=== PATIENT | male | born 1965 | race Caucasian/White ===

== ENCOUNTER 2021-09-05 06:22 | Outpatient (REF) | payer BC, SELFPAY ==
[2021-09-05 11:35] LABS: MANUAL DIFF FLAG NO
[2021-09-05 11:43] LABS: Basophils Absolute Auto 0.1 X10*3/uL (0.0-0.2); Basophils Percent Auto 0.8 % (0-2); Eosinophils Absolute Auto 0.2 X10*3/uL (0.0-0.4); Eosinophils Percent Auto 3.2 % (0-4); Hematocrit 46.4 % (42.0-52.0); Hemoglobin 15.9 g/dl (14.0-18.0); Imm Gran Abs Auto 0.04 X10*3/uL (0.00-0.03); Imm Gran Pct Auto 0.5 % (0.0-0.4); Lymphocytes Absolute Auto 1.6 X10*3/uL (1.2-4.9); Lymphocytes Percent Auto 21.3 % (20-40); Mean Corpuscular HGB Conc 34.3 g/dl (31.0-36.0); Mean Corpuscular Hemoglobin 30.3 pg (27.0-33.0); Mean Corpuscular Volume 88.5 fL (80.0-98.0); Mean Platelet Volume 9.9 fL (9.4-12.4); Monocytes Absolute Auto 0.6 X10*3/uL (0.1-1.2); Monocytes Percent Auto 8.2 % (2-11); Platelet Count 265 X10*3/uL (160-400); Red Blood Count 5.24 X10*6/uL (4.60-5.80); Red Cell Distribution Width 11.6 % (11.0-16.0); White Blood Count 7.5 X10*3/uL (4.8-10.8)
[2021-09-05 12:01] LABS: Estimated Average Glucose 111 mg/dL; Hemoglobin A1c % 5.5 %
[2021-09-05 12:09] LABS: Alanine Aminotransferase 26 U/L (0-40); Albumin Level 4.6 g/dL (3.5-5.0); Alkaline Phosphatase 80 U/L (39-117); Anion Gap 12 (12-20); Aspartate Amino Transferase 16 U/L (5-37); Bilirubin Total 0.9 mg/dL (0.0-1.0); Blood Urea Nitrogen 13 mg/dL (9-16); Calcium 9.4 mg/dL (8.4-10.2); Carbon Dioxide 29 mmol/L (22-29); Chloride 102 mmol/L (96-108); Cholesterol 213 mg/dL; Estimated Glomerular Filt Rate > 60; Glucose Random 127 mg/dL (60-115); HDL Cholesterol 46 mg/dL; LDL Cholesterol Calculated 118 mg/dl; Potassium 4.4 mmol/L (3.3-5.1); Sodium 139 mmol/L (135-145); Total Protein 7.1 g/dL (6.5-8.0); Triglycerides 246 mg/dL
[2021-09-05 12:11] LABS: Free T4 (Free Thyroxine) 0.99 ng/dL (0.71-1.85); Prostate Specific Antigen Scr 0.55 ng/mL (<0.05-4.0)
[2021-09-05 12:41] LABS: Vitamin B12 255 pg/mL (200-900)
== END 2021-09-05 06:23 | disposition home or self-care (01) ==
LOC: HO.HMGCLDS 06:22
PROVIDERS: Visit Provider Internal Medicine
DX: Z12.5 Encounter for screening for malignant neoplasm of prostate (principal); R73.01 Impaired fasting glucose; I10 Essential (primary) hypertension; E78.00 Pure hypercholesterolemia, unspecified
CPT/HCPCS: 36415; 80053; 80061; 82607; 82746; 83036; 84153; 84439; 84443; 85025

== ENCOUNTER 2022-06-01 07:02 | Outpatient (REF) | payer BC, SELFPAY ==
--- NOTE | ~2022-06-01 | XR_ITS ---
EXAMINATION: Bilateral knee x-ray CLINICAL INFORMATION: Pain COMPARISON: None. TECHNIQUE: 2 views of each knee FINDINGS: Left: Bone alignment is normal. No fracture or dislocation. Normal disc spaces. No joint effusion. Right: Bone alignment is normal. No fracture or disc. Normal joint spaces. No joint effusion. XR/XR knee LT 2V IMPRESSION: Unremarkable exam.
--- NOTE | ~2022-06-01 | XR_ITS ---
EXAMINATION: Bilateral knee x-ray CLINICAL INFORMATION: Pain COMPARISON: None. TECHNIQUE: 2 views of each knee FINDINGS: Left: Bone alignment is normal. No fracture or dislocation. Normal disc spaces. No joint effusion. Right: Bone alignment is normal. No fracture or disc. Normal joint spaces. No joint effusion. XR/XR knee RT 2V IMPRESSION: Unremarkable exam.
[2022-06-01 12:22] LABS: Estimated Average Glucose 111 mg/dL; Hemoglobin A1c % 5.5 %
[2022-06-01 12:36] LABS: Alanine Aminotransferase 18 U/L (0-40); Albumin Level 4.6 g/dL (3.5-5.0); Alkaline Phosphatase 92 U/L (39-117); Anion Gap 13 (12-20); Aspartate Amino Transferase 13 U/L (5-37); Blood Urea Nitrogen 17 mg/dL (9-16); Calcium 9.7 mg/dL (8.4-10.2); Carbon Dioxide 32 mmol/L (22-29); Chloride 102 mmol/L (96-108); Cholesterol 225 mg/dL; Estimated Glomerular Filt Rate > 60; Glucose Random 114 mg/dL (60-115); HDL Cholesterol 48 mg/dL; LDL Cholesterol Calculated 126 mg/dl; Potassium 4.8 mmol/L (3.3-5.1); Sodium 142 mmol/L (135-145); Total Protein 6.9 g/dL (6.5-8.0); Triglycerides 255 mg/dL
[2022-06-05 09:08] LABS: Lyme Abs Screen <0.90 index
== END 2022-06-01 07:03 | disposition home or self-care (01) ==
LOC: HO.HMGCLDS 07:02
PROVIDERS: PCP Internal Medicine; Visit Provider Internal Medicine
DX: T14.8XXA Other injury of unspecified body region, initial encounter (principal); W57.XXXA Bitten or stung by nonvenomous insect and other nonvenomous arthropods, initial encounter; M25.562 Pain in left knee; M25.561 Pain in right knee; R73.01 Impaired fasting glucose; E78.00 Pure hypercholesterolemia, unspecified
CPT/HCPCS: 36415; 73560; 80053; 80061; 83036; 86617; 86618

== ENCOUNTER 2022-10-19 10:32 | Day surgery (SDC) | payer BC, SELFPAY ==
--- NOTE | 2022-10-18 12:24 | HO.ANESPROP2 ---
Documented by User: Emerald Villatoro NP 10/18/22 12:25 HPI - Anesthesia Eval Consult details Narrative: 57yo M for Colonoscopy PMFSH Active Problems Active Problems: All Active Problems (Updated 04/24/22 @ 12:38 by Manolo Phillips MD) Tick bite (Acute) Knee pain, bilateral (Acute) Disorder of pigmentation, unspecified (Acute) Colon cancer (Acute) Annual physical exam (Acute) Knee pain (Acute) Impaired fasting blood sugar (Acute) Overweight (BMI 25.0-29.9) (Acute) Hypertension (Acute) Hypercholesterolemia (Acute) Past Medical History Medical History Alcohol abuse Colon cancer Overweight (BMI 25.0-29.9) Hypertension Hypercholesterolemia Family History Family History Father Mouth cancer Lung cancer Mother CAD (coronary artery disease) Aneurysm Maternal Uncle Brain cancer Brother CAD (coronary artery disease) Surgical History Surgical History (Updated 10/19/22 @ 12:31 by Shruti Flores MD) H/O colonoscopy History of inguinal hernia repair History of tonsillectomy Social History Social History Housing: House Alcohol intake: current Alcohol intake frequency: a few times a week Patient Tobacco Use Status: Never used Tobacco e-Cigarette/Vaping Use: Never Used Second Hand Smoke Exposure: No Use of substances other than those prescribed or required for medical reasons: No Are you DNR?: No Advance Directives: No Advance Directives Information Provided: Yes Recently lost weight without trying: No Nutrition Risks: No Nutritional Risk Poor oral hygiene: No service: No Current occupational status: employed 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 Cognitive needs: No Hearing needs: No Vision needs: Yes (reading glasses) Meds Allergies Allergy/AdvReac Type Severity Reaction Status Date / Time amlodipine Allergy Unknown leg Verified 06/12/21 16:53 swelling lisinopril Allergy Unknown not Verified 06/12/21 16:53 effective Home Medications Medication Instructions Recorded Confirmed Last Taken Type cholecalciferol (vitamin D3) 25 25 mcg PO DAILY 06/12/21 06/12/21 Unknown History mcg (1,000 unit) capsule Exam Exam Date and Time: October 18, 2022 1224 Pertinent Lab Results Pertinent Lab Results: Laboratory Tests 06/01/22 07:07 Sodium 142 Potassium 4.8 Chloride 102 Carbon Dioxide 32 H BUN 17 H Creatinine 0.85 Assessment and Plan Assessment Anesthesia Assessment: Chart Reviewed Documented by User: Shruti Flores MD 10/19/22 12:54 PMFSH Active Problems Active Problems: All Active Problems (Updated 10/19/22 @ 12:18 by Shruti Flores MD) Tick bite (Acute) Knee pain, bilateral (Acute) Disorder of pigmentation, unspecified (Acute) Colon cancer (Acute) Annual physical exam (Acute) Knee pain (Acute) Impaired fasting blood sugar (Acute) Overweight (BMI 25.0-29.9) (Acute) Hypertension (Acute) Hypercholesterolemia (Acute) ETOH abuse Past Medical History Medical History Alcohol abuse Colon cancer Overweight (BMI 25.0-29.9) Hypertension Hypercholesterolemia Family History Family History Father Mouth cancer Lung cancer Mother CAD (coronary artery disease) Aneurysm Maternal Uncle Brain cancer Brother CAD (coronary artery disease) Family history of problems with anesthesia: No Surgical History Surgical History (Updated 10/19/22 @ 12:31 by Shruti Flores MD) H/O colonoscopy History of inguinal hernia repair History of tonsillectomy History of Problems with Anesthesia: No Social History Social History Housing: House Alcohol intake: current Alcohol intake frequency: a few times a week Patient Tobacco Use Status: Never used Tobacco e-Cigarette/Vaping Use: Never Used Second Hand Smoke Exposure: No Use of substances other than those prescribed or required for medical reasons: No Are you DNR?: No Advance Directives: No Advance Directives Information Provided: Yes Recently lost weight without trying: No Nutrition Risks: No Nutritional Risk Poor oral hygiene: No service: No Current occupational status: employed 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 Cognitive needs: No Hearing needs: No Vision needs: Yes (reading glasses) Meds Allergies Allergy/AdvReac Type Severity Reaction Status Date / Time amlodipine Allergy Unknown leg Verified 06/12/21 16:53 swelling lisinopril Allergy Unknown not Verified 06/12/21 16:53 effective Home Medications Medication Instructions Recorded Confirmed Last Taken Type cholecalciferol (vitamin D3) 25 25 mcg PO DAILY 06/12/21 06/12/21 Unknown History mcg (1,000 unit) capsule Exam Height,Weight and Vital Signs: Height 5 ft 11 in Weight 83.915 kg Vital Signs Temp Pulse Resp BP Pulse Ox O2 Del Method 10/19/22 12:32 157/96 H 10/19/22 12:08 97.4 F 75 18 170/103 H 97 Room Air Airway Mallampati Class: II TM Dist: >3cm Neck ROM: Full Loose/Missing/Broken Teeth: No (Denies broken, loose, missing teeth ) Heart: RRR Lungs: CTAB Assessment and Plan Assessment Anesthesia Assessment: Anesthesia Plan Discussed Final Anesthetic Review Family History of Problems with Anesthesia: No History of Problems with Anesthesia: No NPO: Yes ASA Class: III Final Preanesthetic Review: No Changes in Pt Med Stat, Meds/Allgs Chart Reviewed, Consent Obtained/Reviewed and Anes Risks/Benef Reviewed Patient Risk: Intermediate Procedure Risk: Low Assessment/Block/Sedation in SS: Assess/Block/Sedation-SS Anesthetic Plan Anesthetic Plan: MAC: Disposition: Standard PACU
[2022-10-19 12:08] VITALS: BP 170/103; PULSE 75; RESP 18; TEMP 36.3; O2SAT 97; BMI 25.8
[2022-10-19 12:32] VITALS: BP 157/96
[2022-10-19] MEDS: Lactated Ringers 1,000 ML 100 ML IVCONT (12:32)
--- NOTE | 2022-10-19 12:57 | MHC.SHP ---
Pre-Procedural Eval Section A Date of Service: 10/19/22 Section B Chief Complaint: Screening Details of Present Illness: see H*P no changes Relevant Family History (Specify if Yes): No Relevant Social History: None Present Medications: see Short Stay Collaborative assessment Medical History: No relevant PMH History of Previous Operations: No relevant previous surgery Allergies: Allergies Allergy/AdvReac Type Severity Reaction Status Date / Time amlodipine Allergy Unknown leg Verified 06/12/21 16:53 swelling lisinopril Allergy Unknown not Verified 06/12/21 16:53 effective Review of Systems Sugical H&P ROS: Negative: Constitution, Cardiovascular, Respiratory, Neurological, Psychiatric, Hem-Onc, Allergic/Immunologic, Gastrointestinal, Genitourinary, Musculoskeletal, Integumentary, Endocrine and Eyes/Ears/Nose/Throat Exam Surgical H&P Exam: Normal: HEENT, Normal: Heart, Normal: Lungs, Normal: Extremities, Normal: Abdomen, Normal: Skin and Normal: Neurological Plan Diagnosis/Plan: Unchanged I have reviewed the history and physical and performed a pertinent physical examination on my patient. No changes have occurred unless specified. Time Spent With Patient Time: Total time managing care of this patient today ____ minutes.
--- NOTE | 2022-10-19 13:30 | P.BOP_ITS ---
Brief Operative Note Date of Service: 10/19/22 Pre-op diagnosis: screening Post-op diagnosis: same Procedure: colonoscopy Surgeon: Israel Gaxiola Anesthesia: MAC Was an Shingle Cutter used for this Procedure?: No Estimated blood loss (mL): 0 Pathology: none sent Condition: stable Disposition: PACU
[2022-10-19 13:31] VITALS: BP 120/60; PULSE 73; RESP 16; TEMP 36.1; O2SAT 95
[2022-10-19 13:46] VITALS: BP 131/75; PULSE 71; RESP 14; O2SAT 96
[2022-10-19 14:01] VITALS: BP 136/77; PULSE 66; RESP 16; TEMP 36.6; O2SAT 98
--- NOTE | 2022-10-19 23:17 | OP_ITS ---
DATE OF SERVICE: 10/19/2022 SURGEON: Israel Gaxiola MD INDICATIONS: Colon cancer screening and prior history of adenomatous colon polyps. PREOPERATIVE DIAGNOSIS: POSTOPERATIVE DIAGNOSIS: PROCEDURE PERFORMED: Colonoscopy to the terminal ileum. ESTIMATED BLOOD LOSS: COMPLICATIONS: ANESTHESIA: Monitored anesthesia care. ASSISTANTS: SPECIMENS: DESCRIPTION OF PROCEDURE: A history and physical were performed. The risks and benefits of the procedure were explained to the patient. Informed consent was obtained. The patient was placed in the left lateral decubitus position. A digital rectal exam was performed and was found to be normal. The Olympus pediatric video colonoscope was introduced into the rectum and advanced to the cecum. The cecum was identified by transillumination, palpation, and identification of the ileocecal valve. Examination was performed, and the scope was removed. He tolerated the procedure well and was taken to recovery area in stable condition. FINDINGS: The terminal ileum was examined and appeared normal. The visualized colonic mucosa was normal. The quality of the prep was good. No polyps were identified. 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 IMPRESSION: Normal colonoscopy. RECOMMENDATION: 1. Follow up as needed. 2. Repeat colonoscopy in 5 years. MD HAMMAD Nino/EKTA / [id number]
== END 2022-10-19 14:25 | disposition home or self-care (01) ==
PROVIDERS: PCP Internal Medicine; Visit Provider Internal Medicine Gastroenterology
PROC: 0DJD8ZZ Inspection of Lower Intestinal Tract, Via Natural or Artificial Opening Endoscopic (ICD-10-PCS; CPT 45378; principal; 2022-10-19 12:00)
DX: Z12.11 Encounter for screening for malignant neoplasm of colon (principal); Z86.010 Personal history of colon polyps; I10 Essential (primary) hypertension; E78.5 Hyperlipidemia, unspecified; Z79.899 Other long term (current) drug therapy
CPT/HCPCS: 45378

== ENCOUNTER 2023-01-21 12:09 | Outpatient (AMB) | payer BC, SELFPAY ==
[2023-01-21 12:29] VITALS: BP 178/96; PULSE 71; O2SAT 96; BMI 26.6
--- NOTE | 2023-01-21 12:29 | MHC.PC.OV ---
Vital Signs 01/21/23 12:29 Height 5 ft 11 in Weight 191 lb 0.4 oz BMI 26.6 BP 178/96 H Blood Pressure Location Lt brachial Position Sitting Pulse 71 Pulse Source Pulse Oximeter Pulse Oximetry (%) 96 Oxygen Delivery Method Room Air Intake Visit Reasons: Physical Exam Motorcycle Service Technician Required: No Allergies amlodipine Allergy (Unknown, Verified 01/21/23 12:33) leg swelling Medication List - Last Reconciled 01/21/23 by Manolo Phillips MD betamethasone dipropionate 0.05% 1 appl topical BID PRN cholecalciferol (vitamin D3) 25 mcg PO DAILY lisinopril-hydrochlorothiazide 10-12.5 mg 1 tab PO DAILY simvastatin 10 mg PO QPM Tobacco use date assessed: 01/21/23 HPI Physical Exam HPI Details 57-year-old overweight male with a history of impaired glucose tolerance hypertension hypercholesterolemia coming in for an physical exam. Last seen for physical exam in June 2021. Review of the notes patient had a colonoscopy done under Dr. Gaxiola October 2022 normal colonoscopy advised to repeat in 5 years. Had an x-ray done in June 2022 both normal [facility] Medical History (Updated 01/21/23 @ 12:49 by Manolo Phillips MD) Knee pain, bilateral Alcohol abuse Colon cancer Overweight (BMI 25.0-29.9) Hypertension Hypercholesterolemia Surgical History (Updated 10/19/22 @ 12:31 by Shruti Flores MD) H/O colonoscopy History of inguinal hernia repair History of tonsillectomy Family History (Updated 01/21/23 @ 12:44 by Manolo Phillips MD) Father Mouth cancer Lung cancer Mother CAD (coronary artery disease) Aneurysm Maternal Uncle Brain cancer Brother CAD (coronary artery disease) Maternal Uncle Brain cancer Social History (Updated 01/21/23 @ 12:44 by Manolo Phillips MD) Housing: House Alcohol intake: current Alcohol intake frequency: a few times a week Comment: twice a week 4 drinks and 6 drinks Patient Tobacco Use Status: Never used Tobacco e-Cigarette/Vaping Use: Never Used Second Hand Smoke Exposure: No service: No Current occupational status: employed 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 1. Little interest or pleasure in doing things: not at all 2. Feeling down, depressed, or hopeless: not at all 3. Trouble falling or staying asleep, or sleeping too much: not at all 4. Feeling tired or having little energy: not at all 5. Poor appetite or overeating: not at all 6. Feeling bad about yourself - or that you are a failure or have let yourself or your family down: not at all 7. Trouble concentrating on things, such as reading the newspaper or watching television: not at all 8. Moving or speaking so slowly that other people could have noticed. Or the opposite - being so fidgety or restless that you have been moving around a lot more than usual: not at all 9. Thoughts that you would be better off or of hurting yourself in some way: not at all Total score: 0 Depression Screening Interpretation: Negative Depression Screening Done: Yes Source: Developed by Drs. Aiden Ramos, Michael Bermudez and colleagues, with an educational liane from [employer]. Thrive Questionnaire Date Thrive assessed: 06/12/21 AUDIT C Alcohol Use Questionnaire (AUDIT-C) 1. How often do you have a drink containing alcohol?: 2-3 times a week 2. How many drinks containing alcohol do you have on a typical day when you are drinking?: 1 or 2 3. How often do you have six or more drinks on one occasion?: Never Total Score: 3 LEE-7 AMB Questionnaire LEE-7 Date LEE - 7 assessed: 01/21/23 Feeling nervous, anxious, or on edge: 0 = Not at all Not being able to stop or control worryin = Not at all Worrying too much about different things: 0 = Not at all Trouble relaxin = Not at all Being so restless that it is hard to sit still: 0 = Not at all Becoming easily annoyed or irritable: 0 = Not at all Feeling afraid as if something awful might happen: 0 = Not at all Total LEE-7 score (0-4 normal; 5-9 mild; 10-14 moderate; 15-21 severe): 0 Source: Developed by Drs. Aiden Ramos, Michael Bermudez and colleagues, with an educational liane from [employer]. Review of Systems Const Denies poor appetite and Denies weakness Eyes Denies no additional complaints ENT Reports Normal hearing present, Denies dizziness, Denies nasal congestion, Denies tinnitus and Denies sore throat Card Denies chest pain, Denies syncope, Denies rapid heart rate and Denies dyspnea Resp Denies cough and Denies dyspnea GI Denies change in stool character, Reports constipation, Denies diarrhea, Denies nausea and Denies vomiting Denies dysuria and Denies urinary frequency Neuro Reports Normal hearing present, Denies confusion, Denies dizziness, Denies syncope and Denies weakness Psych Denies confusion Physical exam (Primary Care) Vital Signs: Last Vital Signs Pulse 71 01/21/23 12:29 BP 178/96 H 01/21/23 12:29 Pulse Ox 96 01/21/23 12:29 Oxygen Delivery Method Room Air 01/21/23 12:29 BMI result Body Mass Index 26.6 Tobacco/Smoking Status: Tobacco use Status Tobacco use date assessed 01/21/23 01/21/23 12:36 Patient Tobacco Use Status Never used Tobacco 01/21/23 12:44 e-Cigarette/Vaping Use Never Used 01/21/23 12:44 PHQ-9: PHQ-9 Score PHQ-9: Total score 0 01/21/23 12:36 Depression Screening Interpretation: Negative Thrive Assessment: Date of Thrive Assessment Date Thrive assessed 06/12/21 01/21/23 12:36 Const General: No confusion Orientation/consciousness: No confusion HENMT Head: Yes normocephalic Ears: external ears normal and TM's normal bilaterally Face and sinus: Yes normal facial exam Mouth: moist mucous membranes Throat: Yes tonsils normal Eyes Conjunctivae: conjunctivae normal Pupils: Equal, round and reactive pupils present and Pupil accommodation reflex normal Direct Ophthalmoscopy: normal light reflex Neck Neck: No lymphadenopathy Thyroid: Thyroid normal Chest Chest palpation & inspection: normal inspection of the chest Resp Effort & Inspection: normal respiratory effort and no audible wheezes Auscultation: clear to auscultation bilaterally, no crackles, no wheezes and lung sounds not diminished Cardio Rate: regular rate Rhythm: regular rhythm Peripheral pulses: radial pulses present and dorsalis pedis present GI Other: colon test recently Palpation (GI): no masses Auscultation: normal bowel sounds and normoactive bowel sounds Rectal Exam - Male: Yes deferred Male General Exam: Yes normal external exam Skin Other: multiple scaly rashes elbow RLQ abd. with swelling L elbow , General skin exam: no rashes or lesions noted Rashes: no rashes Neuro General: No confusion Cranial nerves: Yes Equal, round and reactive pupils present and Yes Normal hearing present Cognition (Neuro): normal cognition Gait exam (Neuro): Normal gait present Motor exam (neuro): 5/5 motor strength present throughout Deep tendon reflexes (DTR's): Right brachioradialis reflex intensity grade: 2+, Left brachioradialis reflex intensity grade: 2+, Right patellar reflex intensity grade: 2+ and Left patellar reflex intensity grade: 2+ Extrem General: No edema Office Procedures Flu Questionnaire Does the patient have a severe egg allergy?: No Does the patient have severe life threatening allergies?: No Does the patient have a fever or illness today?: No Has the patient ever had Guillain-Labadie Syndrome?: No Has the patient ever had any past reaction to a flu shot?: No Immunizations flu vacc [id number] 6mos up(PF) 60 mcg(15 mcgx4)/0.5 mL IM syringe Performing Provider: Manolo Phillips MD [facility] Administered by: CATALINA Luz on 01/21/23 13:05 Dose Route Admin Location Dispensed Lot Number Expiration Date NDC Web Marketing Intern 0.5 mL IM Left Deltoid 0.5 mL [id number] 08/11/23 46743-016-33 [employer] VIS Given Date VIS Provided VIS Publication Date 01/21/23 Single Vaccine 20 Eligibility Eligibility Date Funding Source Not [facility] Eligible 01/21/23 Private Assessment and Plan Assessment & Plan (1) Annual physical exam: Code(s): Z00.00 - Encounter for general adult medical examination without abnormal findings (2) Hypertension: Code(s): I10 - Essential (primary) hypertension Qualifiers: Hypertension type: essential hypertension Qualified Code(s): I10 - Essential (primary) hypertension Plan: Continue with blood pressure medication. Decrease salt intake and exercise patient is on hydrochlorothiazide 12.5 mg once a day (3) Hypercholesterolemia: Code(s): E78.00 - Pure hypercholesterolemia, unspecified Plan: Avoid fried foods, chicken skin, eggs, butter margarine, pastries and meat. Be it pork or beef they have a lot of cholesterol LDL goal of less than 130 and triglyceride of less than 150. Patient on simvastatin 10 mg once a day blood work requested (4) Impaired fasting blood sugar: Code(s): R73.01 - Impaired fasting glucose Plan: Decrease the amount of carbohydrate intake, pasta, bread, rice and potatoes are all sugar and that is aside from all the sweet stuff, remember that fruits are good but they are Sweet also. (5) Colon cancer: Comment: May 2016 Dr. Gaxiola added a carcinoma May 2017 tubular adenoma October 2022 Code(s): C18.9 - Malignant neoplasm of colon, unspecified Plan: Normal colonoscopy October 2019 (6) Olecranon bursitis, left elbow: Code(s): M70.22 - Olecranon bursitis, left elbow (7) Psoriasis: Code(s): L40.9 - Psoriasis, unspecified Orders: Orders Comprehensive Met. Panel Today E78.00 - Pure hypercholesterolemia, unspecified Free T4 (Free Thyroxine) Today E78.00 - Pure hypercholesterolemia, unspecified Vitamin B12 and Folate Today E78.00 - Pure hypercholesterolemia, unspecified Complete Blood Count Auto Diff Today E78.00 - Pure hypercholesterolemia, unspecified Thyroid Stimulating Hormone Today E78.00 - Pure hypercholesterolemia, unspecified Lipid Panel Today E78.00 - Pure hypercholesterolemia, unspecified Prostate Specific Antigen Scr Today E78.00 - Pure hypercholesterolemia, unspecified Influenza [id number] Immunization Today Z23 - Encounter for immunization Medications: New lisinopril-hydrochlorothiazide 10-12.5 mg 1 tab PO DAILY 30 tabs 4RF I10 - Essential (primary) hypertension betamethasone dipropionate 0.05% 1 appl topical BID PRN 45 grams 0RF skin irritation L40.9 - Psoriasis, unspecified Discontinued hydrochlorothiazide Discontinued Reason: Doctor's Order 12.5 mg PO QAM 90 tabs 3RF I10 - Essential (primary) hypertension Coding Level of Care Code Est Pt Prev Care [id number]([id number]) Diagnoses Annual physical exam Z00.00 Essential hypertension I10 Hypertension type: essential hypertension Hypercholesterolemia E78.00 Impaired fasting blood sugar R73.01 Colon cancer C18.9 Olecranon bursitis, left elbow M70.22 Psoriasis L40.9
== END 2023-01-21 13:10 | disposition home or self-care (01) ==
PROVIDERS: Visit Provider Internal Medicine
DX: Z00.00 Encounter for general adult medical examination without abnormal findings (principal); C18.9 Malignant neoplasm of colon, unspecified; I10 Essential (primary) hypertension; Z23 Encounter for immunization; E78.00 Pure hypercholesterolemia, unspecified; R73.01 Impaired fasting glucose; M70.22 Olecranon bursitis, left elbow; L40.9 Psoriasis, unspecified
CPT/HCPCS: 90471; 90686; 99396

== ENCOUNTER 2023-03-07 06:55 | Outpatient (REF) | payer BC, SELFPAY ==
[2023-03-07 11:46] LABS: MANUAL DIFF FLAG NO
[2023-03-07 12:11] LABS: Basophils Absolute Auto 0.1 X10*3/uL (0.0-0.2); Basophils Percent Auto 0.9 % (0-2); Eosinophils Absolute Auto 0.1 X10*3/uL (0.0-0.4); Eosinophils Percent Auto 1.1 % (0-4); Imm Gran Abs Auto 0.03 X10*3/uL (0.00-0.03); Imm Gran Pct Auto 0.3 % (0.0-0.4); Lymphocytes Absolute Auto 1.6 X10*3/uL (1.2-4.9); Lymphocytes Percent Auto 17.5 % (20-40); Mean Corpuscular Hemoglobin 30.1 pg (27.0-33.0); Mean Corpuscular Volume 88.3 fL (80.0-98.0); Mean Platelet Volume 9.8 fL (9.4-12.4); Monocytes Absolute Auto 0.7 X10*3/uL (0.1-1.2); Neutrophils Absolute Auto 6.8 x10*3/uL (2.0-8.3); Neutrophils Percent Auto 73.2 % (45-73); Platelet Count 261 X10*3/uL (160-400); Red Blood Count 5.32 X10*6/uL (4.60-5.80); Red Cell Distribution Width 11.4 % (11.0-16.0); White Blood Count 9.3 X10*3/uL (4.8-10.8)
[2023-03-07 12:16] LABS: Alanine Aminotransferase 22 U/L (0-40); Albumin Level 4.5 g/dL (3.5-5.0); Alkaline Phosphatase 88 U/L (39-117); Anion Gap 11 (12-20); Aspartate Amino Transferase 14 U/L (5-37); Bilirubin Total 0.6 mg/dL (0.0-1.0); Blood Urea Nitrogen 17 mg/dL (9-16); Calcium 9.6 mg/dL (8.4-10.2); Carbon Dioxide 28 mmol/L (22-29); Chloride 104 mmol/L (96-108); Cholesterol 191 mg/dL (<200); Estimated Glomerular Filt Rate > 60; Glucose Random 122 mg/dL (60-115); HDL Cholesterol 37 mg/dL (>40); LDL Cholesterol Calculated 119 mg/dL (<100); Potassium 4.4 mmol/L (3.3-5.1); Sodium 139 mmol/L (135-145); Total Protein 7.2 g/dL (6.5-8.0); Triglycerides 177 mg/dL (<150)
[2023-03-07 12:35] LABS: Free T4 (Free Thyroxine) 0.94 ng/dL (0.71-1.85); Thyroid Stimulating Hormone 0.55 uIU/mL (0.32-4.0)
[2023-03-07 12:57] LABS: Folate 4.8 ng/mL (> or = 4.0); Prostate Specific Antigen Scr 0.45 ng/mL (<0.05-4.0); Vitamin B12 385 pg/mL (200-900)
== END 2023-03-07 06:56 | disposition home or self-care (01) ==
LOC: HO.HMGCLDS 06:55
PROVIDERS: PCP Internal Medicine; Visit Provider Internal Medicine
DX: Z12.5 Encounter for screening for malignant neoplasm of prostate (principal); E78.00 Pure hypercholesterolemia, unspecified
CPT/HCPCS: 36415; 80053; 80061; 82607; 82746; 84153; 84439; 84443; 85025

== ENCOUNTER 2023-04-01 12:54 | Outpatient (AMB) | payer BC, SELFPAY ==
--- NOTE | 2023-04-01 12:57 | MHC.PC.OV ---
Vital Signs 04/01/23 12:59 Height 5 ft 11 in Weight 189 lb BMI 26.4 BP 120/64 Blood Pressure Location Lt brachial Position Sitting Pulse 77 Pulse Source Pulse Oximeter Pulse Oximetry (%) 96 Oxygen Delivery Method Room Air Intake Visit Reasons: htn Intake Note: Patient is here to follow up on HTN, Impaired fasting blood sugar Box Closing Machine Operator Required: No Android Framework Developer: Not Required per policy Accompanied by: Self / Same As Patient Allergies amlodipine Allergy (Unknown, Verified 04/01/23 12:58) leg swelling Tobacco use date assessed: 04/01/23 Dental Screening Dental Screen Date: 04/01/23 Did you have a dental visit in the last 12 months?: Yes Did you have a dental problem in the last 6 months where you did not have access to dental care?: No Was dental information given to patient?: Patient has dentist HPI htn HPI Details 58-year-old overweight male with hypertension hypercholesterolemia impaired glucose tolerance last seen in January 2023 for physical exam. Patient is here for follow-up [facility] Medical History (Updated 01/21/23 @ 12:49 by Manolo Phillips MD) Knee pain, bilateral Alcohol abuse Colon cancer Overweight (BMI 25.0-29.9) Hypertension Hypercholesterolemia Surgical History H/O colonoscopy History of inguinal hernia repair History of tonsillectomy Family History Father Mouth cancer Lung cancer Mother CAD (coronary artery disease) Aneurysm Maternal Uncle Brain cancer Brother CAD (coronary artery disease) Maternal Uncle Brain cancer Social History Housing: House Alcohol intake: current Alcohol intake frequency: a few times a week Comment: twice a week 4 drinks and 6 drinks Patient Tobacco Use Status: Never used Tobacco e-Cigarette/Vaping Use: Never Used Second Hand Smoke Exposure: No service: No Current occupational status: employed 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 1. Little interest or pleasure in doing things: not at all 2. Feeling down, depressed, or hopeless: not at all 3. Trouble falling or staying asleep, or sleeping too much: not at all 4. Feeling tired or having little energy: not at all 5. Poor appetite or overeating: not at all 6. Feeling bad about yourself - or that you are a failure or have let yourself or your family down: not at all 7. Trouble concentrating on things, such as reading the newspaper or watching television: not at all 8. Moving or speaking so slowly that other people could have noticed. Or the opposite - being so fidgety or restless that you have been moving around a lot more than usual: not at all 9. Thoughts that you would be better off or of hurting yourself in some way: not at all Total score: 0 Depression Screening Interpretation: Negative Depression Screening Done: Yes Source: Developed by Drs. Aiden Ramos, Elisa Pierson, Michael Shipman and colleagues, with an educational liane from [employer]. Thrive Questionnaire Date Thrive assessed: 04/01/23 I am a: Patient What is your living situation today?: I have a steady place to live Within the past 12 months, did the food you bought not last and you didn't have the money to get more?: Never true Within the past 12 months, did you worry whether your food would run out before you got money to buy more?: Never true Do you have trouble paying for medicines?: No Do you have trouble getting transportation to medical appointments?: No Do you have trouble paying your heating and electricity bill?: No Do you have trouble taking care of your child, family member or friend?: No Do you have trouble with day-to-day activities such as bathing, preparing meals, shopping, managing finances, etc.?: No Are you currently unemployed and looking for a job?: No Are you interested in more education?: No Currently or been in a relationship where the following occur: no concerns reported THRIVE Score: 0 AUDIT C Alcohol Use Questionnaire (AUDIT-C) 1. How often do you have a drink containing alcohol?: 2-3 times a week 2. How many drinks containing alcohol do you have on a typical day when you are drinking?: 1 or 2 Total Score: 3 LEE-7 AMB Questionnaire LEE-7 Date LEE - 7 assessed: 04/01/23 Feeling nervous, anxious, or on edge: 0 = Not at all Not being able to stop or control worryin = Not at all Worrying too much about different things: 0 = Not at all Trouble relaxin = Not at all Being so restless that it is hard to sit still: 0 = Not at all Becoming easily annoyed or irritable: 0 = Not at all Feeling afraid as if something awful might happen: 0 = Not at all Total LEE-7 score (0-4 normal; 5-9 mild; 10-14 moderate; 15-21 severe): 0 Source: Developed by Drs. Aiden Ramos, Elisa Pierson, Michael Shipman and colleagues, with an educational liane from [employer]. Physical exam (Primary Care) BMI result Body Mass Index 26.4 Tobacco/Smoking Status: Tobacco use Status Tobacco use date assessed 01/21/23 01/21/23 12:36 Patient Tobacco Use Status Never used Tobacco 01/21/23 12:44 e-Cigarette/Vaping Use Never Used 01/21/23 12:44 Depression Screening Interpretation: Negative Thrive Assessment: Date of Thrive Assessment Date Thrive assessed 06/12/21 01/21/23 12:36 Currently or been in a relationship where the following occur: no concerns reported Const General: alert; No acute distress Eyes Conjunctivae: conjunctivae normal Resp Auscultation: clear to auscultation bilaterally Cardio Rate: regular rate Rhythm: regular rhythm GI Inspection: Yes normal to inspection Extrem General: Yes normal to inspection and No edema Assessment and Plan Assessment & Plan (1) Impaired fasting blood sugar: Code(s): R73.01 - Impaired fasting glucose Plan: Decrease the amount of carbohydrate intake, pasta, bread, rice and potatoes are all sugar and that is aside from all the sweet stuff, remember that fruits are good but they are Sweet also. (2) Overweight (BMI 25.0-29.9): Code(s): E66.3 - Overweight Plan: Continue with diet and exercise (3) Hypertension: Code(s): I10 - Essential (primary) hypertension Qualifiers: Hypertension type: essential hypertension Qualified Code(s): I10 - Essential (primary) hypertension Plan: Continue with blood pressure medication. Decrease salt intake and exercise patient on lisinopril hydrochlorothiazide 10/12.5 mg (4) Hypercholesterolemia: Code(s): E78.00 - Pure hypercholesterolemia, unspecified Plan: Avoid fried foods, chicken skin, eggs, butter margarine, pastries and meat. Be it pork or beef they have a lot of cholesterol presently on simvastatin 10 mg at bedtime. Orders: Orders AMB Hemoglobin A1c Today R73.01 - Impaired fasting glucose Coding Level of Care Code Est Pt Level 4 (33154) Diagnoses Impaired fasting blood sugar R73.01 Overweight (BMI 25.0-29.9) E66.3 Essential hypertension I10 Hypertension type: essential hypertension Hypercholesterolemia E78.00
[2023-04-01 12:59] VITALS: BP 120/64; PULSE 77; O2SAT 96; BMI 26.4
== END 2023-04-01 14:13 | disposition home or self-care (01) ==
PROVIDERS: PCP Internal Medicine; Visit Provider Internal Medicine
DX: R73.01 Impaired fasting glucose (principal); E66.3 Overweight; I10 Essential (primary) hypertension; E78.00 Pure hypercholesterolemia, unspecified
CPT/HCPCS: 83036; 99214

== ENCOUNTER 2024-03-20 06:59 | Outpatient (REF) | payer BC, SELFPAY ==
--- OUTSIDE RECORDS SUMMARY | 2024-03-20 07:01 | XMS_ITS | Clinical Summary ---
Author Organization [facility] Address [address] [place] [address] Care Team Providers Care Change Attendant Name Role Phone Unavailable Primary Care Provider Unavailabl e Social History Tobacco Use Types Packs/Day Years Used Date Smoking Tobacco: Never Assessed Sex and Gender Information Value Date Recorded Sex Assigned at Not on file Legal Sex Male 9:15 AM EDT Gender Identity Not on file Sexual Orientation Not on file Plan of Treatment Health Maintenance Due Date Last Done Comments Hepatitis C Screening 1965 DTaP/Tdap/Td (1 - Tdap) 1983 Hep B (1 of 3 - 19+ 3-dose series) 02/06/1984 Pneumococcal 50+ years (1 of 1 - PCV) 2015 Zoster (Shingrix) (1 of 2) 2015 COVID-19 Vaccine ( - 2023-2 5 season) 2023 Influenza (#1) 2023 HPV Vaccine Aged Out No longer eligi ble based on patient's age to complete this topic Hep A Aged Out No longer eligi ble based on patient's age to complete this topic Hib Aged Out No longer eligi ble based on patient's age to complete this topic Meningococcal ACWY Aged Out No longer eligible based on patient's age to complete this topic
--- OUTSIDE RECORDS SUMMARY | 2024-03-20 07:01 | XMS_ITS | Patient Health Record ---
Author Organization [facility] Address [address] [place] [address] Care Team Providers Care Blood Bank Custodian Name Role Phone Manolo Phillips MD Primary Care Provider Israel Melchor Jr Unavailable [phone] ALLERGIES No Known Allergies REASON FOR REFERRAL No Information MEDICATIONS Medication SIG (Take, Route, Frequency, Duration) Notes Start Date End Date Status MiraLax (colon prep) 17 GM/SCOOP mixed with Gatorade or Crystal Light Orally begin at 5:00 p.m. the day before the procedure for 1 day 09/06/2022 Active Betamethasone Dipropionate 0.05 % APPLY TOPICALLY 2 TIMES A DAY NEEDED FOR SKIN IRRITATION External for 20 Active hydroCHLOROthiazide 12.5 MG TAKE 1 TABLE T BY MOUTH IN THE MORNING Oral for 90 Active Simvastatin 10 MG 1 tablet in the evening Orally Once a day Active ibuprofen 1 tab Oral for 14 days Not-Taking SOCIAL HISTORY Sex Assigned At : Social History Observation Description Sex Assigned At Unknown Alcohol Screen Question Answer Notes Did you have a drink contain ing alcohol in the past year? Yes How often did you have a dri nk containing alcohol in the past year? 4 or more times a week (4 points) How many drinks did you have on a typical day when you were drinking in the past year? 5 or 6 drinks (2 points) How often did you have 6 or more drinks on one occasion in the past year? 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) Active confirmed 526417120 Problem History of colon polyps (Z86.010) Active confirmed History of polyp of colon (769374333) PLAN OF TREATMENT Future Test Test Name Order Date COLONOSCOPY 02/24/2016 COLONOSCOPY 10/18/2016 COLONOSCOPY 09/06/2022 Insurance Providers Payer Name Payer Address Payer Phone Subscriber Number Group Number Insured Name Patient Relationship to Insured Coverage Start Date Coverage End Date [facility] [address] [place], [place] [id number] [phone] [id number] HARLEY SIERRA Self - patient is the insured MEDICAL (GENERAL) HISTORY Medical History History ICD Code hypertension hyperlipidemia Elevated body mass index Surgical History Surgery Date(Month/Year) hernia repair aprox 1994 Colonoscopy with small tubular adenoma, five-year followup 05/29
--- OUTSIDE RECORDS SUMMARY | 2024-03-20 07:01 | XMS_ITS ---
Author Organization [facility] Address [address] [place] [address] Care Team Providers Care Extrusion Die Corrector Name Role Phone Po Manolo MORRIS Primary Care Provider Israel Melchor Jr [phone] REASON FOR VISIT screening PROBLEMS Problem Type ICD Code Onset Dates Problem Status W/U Status Risk SNOMED Code Notes Problem History of colon polyps (Z86.010) Active confirmed History of polyp of colon (893174615) Encounters Encounter Location Date Provider Diagnosis [facility] [address] [place] [phone] 10/19/2022 Israel Gaxiola Jr Colon cancer screening Z12.11 and History of colon polyps Z86.010 ASSESSMENTS Encounter Date Diagnosis Assessment Notes Treatment Notes Treatment Clinical Notes 10/19/2022 Colon cancer screening (ICD-10 - Z12.11) 10/19/2022 History of colon polyps (ICD-10 - Z86.010) PLAN OF TREATMENT No Information
[2024-03-20 10:24] LABS: MANUAL DIFF FLAG NO
[2024-03-20 10:29] LABS: Basophils Absolute Auto 0.1 X10*3/uL (0.0-0.2); Basophils Percent Auto 0.8 % (0-2); Eosinophils Absolute Auto 0.2 X10*3/uL (0.0-0.4); Eosinophils Percent Auto 2.4 % (0-4); Hemoglobin 15.6 g/dl (14.0-18.0); Imm Gran Abs Auto 0.03 X10*3/uL (0.00-0.03); Imm Gran Pct Auto 0.4 % (0.0-0.4); Lymphocytes Absolute Auto 1.7 X10*3/uL (1.2-4.9); Lymphocytes Percent Auto 23.8 % (20-40); Mean Corpuscular HGB Conc 35.5 g/dl (31.0-36.0); Mean Corpuscular Hemoglobin 30.1 pg (27.0-33.0); Mean Corpuscular Volume 84.9 fL (80.0-98.0); Mean Platelet Volume 9.6 fL (9.4-12.4); Monocytes Absolute Auto 0.6 X10*3/uL (0.1-1.2); Neutrophils Absolute Auto 4.6 x10*3/uL (2.0-8.3); Neutrophils Percent Auto 64.6 % (45-73); Platelet Count 262 X10*3/uL (160-400); Red Blood Count 5.18 X10*6/uL (4.60-5.80); White Blood Count 7.1 X10*3/uL (4.8-10.8)
[2024-03-20 10:53] LABS: Estimated Average Glucose 126 mg/dL; Hemoglobin A1C 170.1215 umol/L; Total Hemoglobin (HGBA1C) 4026.1207 umol/L
[2024-03-20 11:30] LABS: Alanine Aminotransferase 28 U/L (0-40); Albumin Level 4.6 g/dL (3.5-5.0); Alkaline Phosphatase 98 U/L (39-117); Anion Gap 12 (12-20); Aspartate Amino Transferase 19 U/L (5-37); Bilirubin Total 0.7 mg/dL (0.0-1.0); Blood Urea Nitrogen 13 mg/dL (9-16); Calcium 9.6 mg/dL (8.4-10.2); Carbon Dioxide 28 mmol/L (22-29); Chloride 103 mmol/L (96-108); Cholesterol 190 mg/dL (<200); Estimated Glomerular Filt Rate > 60; Glucose Random 129 mg/dL (60-115); HDL Cholesterol 46 mg/dL (>40); LDL Cholesterol Calculated 107 mg/dL (<100); Potassium 4.5 mmol/L (3.3-5.1); Sodium 138 mmol/L (135-145); Total Protein 7.4 g/dL (6.5-8.0); Triglycerides 187 mg/dL (<150)
[2024-03-20 11:34] LABS: Free T4 (Free Thyroxine) 0.97 ng/dL (0.71-1.85); Thyroid Stimulating Hormone 1.39 uIU/mL (0.32-4.0)
[2024-03-20 11:39] LABS: Folate 6.5 ng/mL (> or = 4.0); Prostate Specific Antigen Scr 0.44 ng/mL (<0.05-4.0); Vitamin B12 333 pg/mL (200-900)
== END 2024-03-20 07:00 | disposition home or self-care (01) ==
LOC: HO.HMGCLDS 06:59
PROVIDERS: PCP Internal Medicine; Visit Provider Internal Medicine
DX: E78.00 Pure hypercholesterolemia, unspecified (principal); R73.01 Impaired fasting glucose; Z12.5 Encounter for screening for malignant neoplasm of prostate
CPT/HCPCS: 36415; 80053; 80061; 82607; 82746; 83036; 84153; 84439; 84443; 85025

== ENCOUNTER 2024-03-31 16:12 | Outpatient (AMB) | payer BC, SELFPAY ==
[2024-03-31 16:15] VITALS: BP 138/80; PULSE 74; O2SAT 98; BMI 28.2
--- NOTE | 2024-03-31 16:15 | A.OFFPC_ITS ---
Vital Signs 03/31/24 16:15 Height 5 ft 11 in Weight 202 lb BMI 28.2 BP 138/80 Blood Pressure Location Lt brachial Position Sitting Pulse 74 Pulse Source Pulse Oximeter Pulse Oximetry (%) 98 Oxygen Delivery Method Room Air Intake Visit Reasons: physical exam Allergies lisinopril Allergy (Intermediate, Verified 03/31/24 16:15) Cough Medication List - Last Reconciled 03/31/24 by Manolo Phillips MD amlodipine 5 mg PO DAILY betamethasone dipropionate 0.05% 1 appl topical BID PRN cholecalciferol (vitamin D3) 25 mcg PO DAILY fluocinonide 0.05% 1 appl topical BID simvastatin 10 mg PO QPM Tobacco use date assessed: 03/31/24 Dental Screening Dental Screen Date: 03/31/24 Did you have a dental visit in the last 12 months?: Yes Did you have a dental problem in the last 6 months where you did not have access to dental care?: No Was dental information given to patient?: Patient has dentist HPI physical exam HPI Details The patient is a 59-year-old male presenting with concerns regarding worsening psoriasis and family history of cancer. The psoriasis has been aggravated, with new lesions appearing on different parts of the body. The pat ient reports using betamethasone lotion effectively on ear lesions, but the stronger prescribed ointment for the elbows was ineffective. The condition has progressively worsened, prompting a discussion about potentially consulting a brim and crown presser. Regarding family history, there is a significant occurrence of cancer, including lung and oral cancer in the father, brain cancer in two uncles, and a recent diagnosis of stage 4 lung cancer in the patient?s brother who only recently became symptomatic. The patient has never smoked, unlike most affected family members, and is concerned about the risk of cancer due to this family history. - Blood pressure well-controlled on curr ent medication. - Patient frequently monitored for gluco se levels and cholesterol due to borderline impaired fasting glucose and hyperlipidemia, respectively. - Family history prompts monitoring and consideration of scheduling endoscopic evaluations following guinea pig breeder recommendations. - Recommended lifestyle interventions co ncerning dietary improvements to lower sugar and cholesterol intake. - Recommended vaccinations include a flu shot given during this visit; discussed COVID-19 booster though not administered today. - Alcohol consumption twice weekly. - No history of recreational drug use. - Reports being generally active but has concerns about weight gain recently. - Dietary concerns include increased can dy consumption over recent months. - Skin: Reports worsening psoriasis. - Gastrointestinal: Denies heartburn, vo miting, constipation, or blood in stool. - Urinary: Denies issues, notes waking u p once at night to urinate. - Neurological: Denies history of dizzin ess or nausea. - Labs: Fasting glucose at 129 mg/dL; he moglobin A1c at 6.0%; LDL cholesterol 107 mg/dL; triglycerides 187 mg/dL. PENDING SALE TO [facility] Medical History (Updated 03/31/24 @ 16:25 by Manolo Phillips MD) Knee pain, bilateral Alcohol abuse Colon cancer Overweight (BMI 25.0-29.9) Hypertension Hypercholesterolemia Surgical History H/O colonoscopy History of inguinal hernia repair History of tonsillectomy Family History (Updated 03/31/24 @ 16:32 by Manolo Phillips MD) Father Mouth cancer Lung cancer Mother CAD (coronary artery disease) Aneurysm Maternal Uncle Brain cancer Brother CAD (coronary artery disease) Lung cancer Maternal Uncle Brain cancer Social History Housing: House Alcohol intake: current Alcohol intake frequency: a few times a week Comment: twice a week 4 drinks and 6 drinks Patient Tobacco Use Status: Never used Tobacco Tobacco use type: Cigarette e-Cigarette/Vaping Use: Never Used Second Hand Smoke Exposure: No service: No Current occupational status: employed 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 1. Little interest or pleasure in doing things: not at all 2. Feeling down, depressed, or hopeless: not at all 3. Trouble falling or staying asleep, or sleeping too much: not at all 4. Feeling tired or having little energy: not at all 5. Poor appetite or overeating: not at all 6. Feeling bad about yourself - or that you are a failure or have let yourself or your family down: not at all 7. Trouble concentrating on things, such as reading the newspaper or watching television: not at all 8. Moving or speaking so slowly that other people could have noticed. Or the opposite - being so fidgety or restless that you have been moving around a lot more than usual: not at all 9. Thoughts that you would be better off or of hurting yourself in some way: not at all Total score: 0 Depression Screening Interpretation: Negative Depression Screening Done: Yes 18177 - PHQ-9 Billing: Yes Source: Developed by Drs. Aiden Ramos, Elisa Pierson, Michael Shipman and colleagues, with an educational liane from [employer]. Thrive Questionnaire Date Thrive assessed: 03/31/24 I am a: Patient What is your living situation today?: I have a steady place to live Within the past 12 months, did the food you bought not last and you didn't have the money to get more?: Never true Within the past 12 months, did you worry whether your food would run out before you got money to buy more?: Never true Do you have trouble paying for medicines?: No Do you have trouble getting transportation to medical appointments?: No Do you have trouble paying your heating and electricity bill?: No Do you have trouble taking care of your child, family member or friend?: No Do you have trouble with day-to-day activities such as bathing, preparing meals, shopping, managing finances, etc.?: No Are you currently unemployed and looking for a job?: No Are you interested in more education?: I choose not to answer this question Please select the resources that you would like help with: None Currently or been in a relationship where the following occur: I choose not to answer THRIVE Score: 0 AUDIT C Alcohol Use Questionnaire (AUDIT-C) 1. How often do you have a drink containing alcohol?: 2-4 times a month 2. How many drinks containing alcohol do you have on a typical day when you are drinking?: 5 or 6 3. How often do you have six or more drinks on one occasion?: Monthly Total Score: 6 LEE-7 AMB Questionnaire LEE-7 Date LEE - 7 assessed: 03/31/24 Feeling nervous, anxious, or on edge: 0 = Not at all Not being able to stop or control worryin = Not at all Worrying too much about different things: 0 = Not at all Trouble relaxin = Not at all Being so restless that it is hard to sit still: 0 = Not at all Becoming easily annoyed or irritable: 0 = Not at all Feeling afraid as if something awful might happen: 0 = Not at all Total LEE-7 score (0-4 normal; 5-9 mild; 10-14 moderate; 15-21 severe): 0 Source: Developed by Drs. Aiden Ramos, Elisa Pierson, Michael Shipman and colleagues, with an educational liane from [employer]. LEE-7 Assessment Billing LEE-7 Assessment Tool: LEE-7 Assessment 28555 Review of Systems Const Denies poor appetite and Denies weakness Eyes Denies no additional complaints ENT Reports Normal hearing present, Denies dizziness, Denies nasal congestion, Denies tinnitus and Denies sore throat Card Denies chest pain, Denies syncope, Denies rapid heart rate and Denies dyspnea Resp Denies cough and Denies dyspnea GI Denies change in stool character, Reports constipation, Denies diarrhea, Denies nausea and Denies vomiting Denies dysuria and Denies urinary frequency Neuro Reports Normal hearing present, Denies confusion, Denies dizziness, Denies syncope and Denies weakness Psych Denies confusion Physical exam (Primary Care) Vital Signs: Last Vital Signs Pulse 74 03/31/24 16:15 BP 138/80 03/31/24 16:15 Pulse Ox 98 03/31/24 16:15 Oxygen Delivery Method Room Air 03/31/24 16:15 BMI result Body Mass Index 28.2 Tobacco/Smoking Status: Tobacco use Status Tobacco use date assessed 03/31/24 03/31/24 16:19 Patient Tobacco Use Status Never used Tobacco 03/31/24 16:19 Tobacco use type Cigarette 03/31/24 16:19 e-Cigarette/Vaping Use Never Used 03/31/24 16:19 PHQ-9: PHQ-9 Score PHQ-9: Total score 0 03/31/24 16:19 Depression Screening Interpretation: Negative Thrive Assessment: Date of Thrive Assessment Date Thrive assessed 03/31/24 03/31/24 16:19 Currently or been in a relationship where the following occur: I choose not to answer Const General: No confusion Orientation/consciousness: No confusion HENMT Head: Yes normocephalic Ears: external ears normal and TM's normal bilaterally Face and sinus: Yes normal facial exam Mouth: moist mucous membranes Throat: Yes tonsils normal Eyes Conjunctivae: conjunctivae normal Pupils: Equal, round and reactive pupils present and Pupil accommodation reflex normal Direct Ophthalmoscopy: normal light reflex Neck Neck: No lymphadenopathy Thyroid: Thyroid normal Chest Chest palpation & inspection: normal inspection of the chest Resp Effort & Inspection: normal respiratory effort and no audible wheezes Auscultation: clear to auscultation bilaterally, no crackles, no wheezes and lung sounds not diminished Cardio Rate: regular rate Rhythm: regular rhythm Peripheral pulses: radial pulses present and dorsalis pedis present GI Other: guuaic negative , enlarged prostate Palpation (GI): no masses Auscultation: normal bowel sounds and normoactive bowel sounds Skin Other: Raised red plaques covered with silvery white scales elbows knees trunk lower back Neuro General: No confusion Cranial nerves: Yes Equal, round and reactive pupils present and Yes Normal hearing present Cognition (Neuro): normal cognition Gait exam (Neuro): Normal gait present Motor exam (neuro): 5/5 motor strength present throughout Deep tendon reflexes (DTR's): Right brachioradialis reflex intensity grade: 2+, Left brachioradialis reflex intensity grade: 2+, Right patellar reflex intensity grade: 2+ and Left patellar reflex intensity grade: 2+ Extrem General: No edema Coding Level of Care Code Est Pt Prev Care 40-64y(37045) Diagnoses Annual physical exam Z00.00 Colon cancer C18.9 Essential hypertension I10 Hypertension type: essential hypertension Hypercholesterolemia E78.00 Overweight (BMI 25.0-29.9) E66.3 Psoriasis L40.9 Impaired fasting blood sugar R73.01 Additional Codes LEE-7 Assessment Billing - LEE-7 Assessment Tool: LEE-7 Assessment 53325 ([id number]) PHQ-9 - 51599 - PHQ-9 Billing: Yes ([id number]) Assessment & Plan Assessment & Plan (1) Annual physical exam: Code(s): Z00.00 - Encounter for general adult medical examination without abnormal findings Category: Medical Plan: Patient is advised to eat healthy, keep well hydrated, keep active and have adequate sleep. (2) Colon cancer: Comment: May 2016 Dr. Gaxiola added a carcinoma May 2017 tubular adenoma October 2022 Code(s): C18.9 - Malignant neoplasm of colon, unspecified Category: Medical Plan: Continue to follow-up with Gastroenterology. (3) Hypertension: Code(s): I10 - Essential (primary) hypertension Category: Medical Qualifiers: Hypertension type: essential hypertension Qualified Code(s): I10 - Essential (primary) hypertension Plan: Continue with blood pressure medication. Decrease salt intake and exercise on amlodipine 5 mg once a day (4) Hypercholesterolemia: Code(s): E78.00 - Pure hypercholesterolemia, unspecified Category: Medical Plan: Avoid fried foods, chicken skin, eggs, butter margarine, pastries and meat. Be it pork or beef they have a lot of cholesterol LDL goal of less than 130 and triglyceride of less than 150 on simvastatin (5) Overweight (BMI 25.0-29.9): Code(s): E66.3 - Overweight Category: Medical Plan: Diet and exercise (6) Psoriasis: Code(s): L40.9 - Psoriasis, unspecified Category: Medical Plan: follow-up with dermatology. Steroid ointment prescribed. (7) Impaired fasting blood sugar: Code(s): R73.01 - Impaired fasting glucose Category: Medical Plan: Decrease the amount of carbohydrate intake, pasta, bread, rice and potatoes are all sugar and that is aside from all the sweet stuff, remember that fruits are good but they are Sweet also. Plan - Prescribe higher potency betamethasone ointment; refer to dermatology for further evaluation. 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 - Recommend continued monitoring of glucose and lipid levels with repeated fasting glucose testing in three months. - Discuss and recommend preventative strategies and follow-ups with gastroentero logy based on family cancer history, including potential expedited colonoscopy scheduling pending guinea pig breeder review and recommendation. During this visit, I discussed the inadequate response of psoriasis treatment with the patient and provided a prescription for a higher potency steroid ointment while arranging a dermatology referral. I emphasized dietary changes to manage the possible impaired glucose tolerance and hyperlipidemia, noting the significance of avoiding high-sugar foods. I acknowledged the patient's concerns about the family history of cancer and advised on the necessary next steps for preventative care through gastroenterology. - Apply the prescribed betamethasone ointment as directed and monitor psoriasis for changes. - Address dietary habits by reducing candy and sweet intake significantly. - Follow up with gastroenterology regarding scheduling of colonoscopy and further cancer screenings. - Maintain current medication regimen for hypertension and hyperlipidemia. - Consider getting the COVID-19 booster dose as it has been more than six months since the last dose. - Return for a follow-up to repeat fasting glucose and lipid panel in three months. Orders: Orders Comprehensive Met. Panel 3 Months R73.01 - Impaired fasting glucose Hemoglobin A1c 3 Months R73.01 - Impaired fasting glucose Thyroid Stimulating Hormone 3 Months R73.01 - Impaired fasting glucose Free T4 (Free Thyroxine) 3 Months R73.01 - Impaired fasting glucose Referrals Dermatology Referral L40.9 - Psoriasis, unspecified Medications: New betamethasone dipropionate 0.05% 1 appl topical BID PRN 45 grams 0RF skin irritation L40.9 - Psoriasis, unspecified Discontinued fluocinonide 0.05% Discontinued Reason: Duplicate 1 appl topical BID 30 grams 0RF L40.9 - Psoriasis, unspecified
--- OUTSIDE RECORDS SUMMARY | 2024-03-31 16:40 | XMS_ITS | Patient Health Record ---
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) Active confirmed 241545252 Problem History of colon polyps (Z86.010) Active confirmed History of polyp of colon (833948833) PLAN OF TREATMENT Future Test Test Name Order Date COLONOSCOPY 02/24/2016 COLONOSCOPY 10/18/2016 COLONOSCOPY 09/06/2022 Insurance Providers Payer Name Payer Address Payer Phone Subscriber Number Group Number Insured Name Patient Relationship to Insured Coverage Start Date Coverage End Date [facility] [address] [place], [place] [id number] HARLEY SIERRA Self - patient is the insured MEDICAL (GENERAL) HISTORY Medical History History ICD Code hypertension hyperlipidemia Elevated body mass index Surgical History Surgery Date(Month/Year) hernia repair aprox 1994 Colonoscopy with small tubular adenoma, five-year followup 05/29
--- OUTSIDE RECORDS SUMMARY | 2024-03-31 16:40 | XMS_ITS | Clinical Summary ---
Author Organization [facility] Address [address] [place] [address] Care Team Providers Care Lead Ingot Molder Name Role Phone Unavailable Primary Care Provider [...]
--- OUTSIDE RECORDS SUMMARY | 2024-03-31 16:41 | XMS_ITS ---
Author Organization [facility] Address [address] [place] [address] Care Team Providers Care Disposal Worker Name Role Phone Po Manolo MORRIS Primary Care Provider Israel Melchor Jr [phone] REASON FOR VISIT screening PROBLEMS Problem Type ICD Code Onset Dates Problem Status W/U Status Risk SNOMED Code Notes Problem History of colon polyps (Z86.010) Active confirmed History of polyp of colon (340480064) Encounters Encounter Location Date Provider Diagnosis [facility] [address] [place] [phone] 10/19/2022 Israel Gaxiola Jr Colon cancer screening Z12.11 and History of colon polyps Z86.010 ASSESSMENTS Encounter Date Diagnosis Assessment Notes Treatment Notes Treatment Clinical Notes 10/19/2022 Colon cancer screening (ICD-10 - Z12.11) 10/19/2022 History of colon polyps (ICD-10 - Z86.010) PLAN OF TREATMENT No Information
== END 2024-03-31 16:57 | disposition home or self-care (01) ==
PROVIDERS: PCP Internal Medicine; Visit Provider Internal Medicine
DX: Z23 Encounter for immunization (principal)

== ENCOUNTER → 2024-03-31 16:12 | Outpatient (BNVA) | payer BC, SELFPAY | PROVIDERS: PCP Internal Medicine; Visit Provider Internal Medicine | DX: Z00.00 Encounter for general adult medical examination without abnormal findings (principal); Z23 Encounter for immunization; C18.9 Malignant neoplasm of colon, unspecified; I10 Essential (primary) hypertension; E78.00 Pure hypercholesterolemia, unspecified; E66.3 Overweight; L40.9 Psoriasis, unspecified; R73.01 Impaired fasting glucose; Z79.899 Other long term (current) drug therapy | CPT/HCPCS: 90471; 90656; 96127 ==

== ENCOUNTER 2024-06-26 06:17 | Outpatient (REF) | payer BC, SELFPAY ==
--- OUTSIDE RECORDS SUMMARY | 2024-06-26 06:19 | XMS_ITS | Clinical Summary ---
Author Organization [facility] Address [address] [place] [address] Care Team Providers Care Bicycle Assembler Name Role Phone Unavailable Primary Care Provider [...]
--- OUTSIDE RECORDS SUMMARY | 2024-06-26 06:19 | XMS_ITS ---
Author Organization [facility] Address [address] [place] [address] Care Team Providers Care Video Network Engineer Name Role Phone Manolo Phillips MD Primary Care Provider Hedy Gaxiola Jr, Israel Wilson [phone] REASON FOR VISIT please change 5 yr recall to 3 yr 10/2025 Encounters Encounter Location Date Provider Diagnosis [facility] [address] [place] [address] 04/16/2024 Israel Gaxiola Jr Plan Of Treatment No Information Progress Notes * HARLEY SIERRADOB: [birth year] (59 yo M)Acc No.[id number]:04/16/2024 Patient:?MARIELALEANDRAHARLEY :1965???Age:59 Y???Sex:Male Address:[address] [place], [address] * true * Date:? Generated for Ann roman/Aashish/eTransmitting on:?06/26/2024 06:18 AM EDT
--- OUTSIDE RECORDS SUMMARY | 2024-06-26 06:19 | XMS_ITS | Patient Health Record ---
Author Organization [facility] Address [address] [place] [address] Care Team Providers Care Motor Vehicles Inspector Name Role Phone Manolo Phillips MD Primary Care Provider Israel Melchor Jr Allergies No Known Allergies Reason For Referral No Information Medications Medication SIG (Take, Route, Frequency, Duration) Notes [...] 1 tab Oral for 14 days Not-Taking Social History Alcohol Screen Question Answer Notes Did you [...] Never (0 point) Points 6 Interpretation Positive Problems Problem Type SNOMED Code ICD Code Onset Dates Problem Status W/U Status Risk Notes Problem 123126959 Colon cancer screening (Z12.11) Active confirmed Problem 75686519 Encounter for ot her preprocedural examination (Z01.818) Active confirmed Problem History of colon polyps (Z86.010) Active confirmed Problem 240755259 Long-term curren t use of high risk medication other than anticoagulant (Z79.899) Active confirmed Problem 811160395 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) Active confirmed Encounters Encounter Location Date Provider Diagnosis [facility] [address] [place] [address] 04/16/2024 Israel Gaxiola Jr Plan Of Treatment Future Test Test Name Order Date COLONOSCOPY 02/24/2016 COLONOSCOPY 10/18/2016 COLONOSCOPY 09/06/2022 Insurance Providers Payer Name Payer Address Payer Phone Subscriber Number Group Number Insured Name Patient Relationship to Insured Coverage Start Date Coverage End Date [facility] [address] [place], [place] [id number] HARLEY SIERRA Self - patient is the insured Medical (General) History Medical History History ICD Code hypertension hyperlipidemia Elevated body mass index Surgical History Surgery Date(Month/Year) hernia repair aprox 1994 Colonoscopy with small tubular adenoma, five-year followup 05/29
[2024-06-26 10:48] LABS: Estimated Average Glucose 123 mg/dL; Hemoglobin A1C 163.4051 umol/L; Hemoglobin A1c % 5.9 % (<6.0); Total Hemoglobin (HGBA1C) 4015.9013 umol/L
[2024-06-26 11:12] LABS: Alanine Aminotransferase 21 U/L (0-40); Albumin Level 4.5 g/dL (3.5-5.0); Alkaline Phosphatase 88 U/L (39-117); Anion Gap 11 (12-20); Aspartate Amino Transferase 19 U/L (5-37); Bilirubin Total 0.7 mg/dL (0.0-1.0); Blood Urea Nitrogen 16 mg/dL (9-16); Calcium 9.4 mg/dL (8.4-10.2); Carbon Dioxide 28 mmol/L (22-29); Chloride 105 mmol/L (96-108); Estimated Glomerular Filt Rate > 60; Glucose Random 118 mg/dL (60-115); Potassium 4.1 mmol/L (3.3-5.1); Sodium 140 mmol/L (135-145); Total Protein 6.9 g/dL (6.5-8.0)
[2024-06-26 11:27] LABS: Free T4 (Free Thyroxine) 0.89 ng/dL (0.71-1.85); Thyroid Stimulating Hormone 1.65 uIU/mL (0.32-4.0)
== END 2024-06-26 06:18 | disposition home or self-care (01) ==
LOC: HO.HMGCLDS 06:17
PROVIDERS: PCP Internal Medicine; Visit Provider Internal Medicine
DX: R73.01 Impaired fasting glucose (principal)
CPT/HCPCS: 36415; 80053; 83036; 84439; 84443

== ENCOUNTER 2024-06-30 15:56 | Outpatient (AMB) | payer BC, SELFPAY ==
--- NOTE | 2024-06-30 16:00 | MHC.PC.OV ---
Vital Signs 06/30/24 16:01 06/30/24 16:04 Height 5 ft 11 in Weight 202 lb 2 oz BMI 28.2 BP 100/62 130/80 Blood Pressure Location Lt brachial Lt brachial Position Sitting Sitting Pulse 64 Pulse Source Pulse Oximeter Temp 97.3 F Temp Source Temporal Artery Scan Pulse Oximetry (%) 96 Oxygen Delivery Method Room Air Intake Visit Reasons: IGT Intake Note: Patient is here to follow up on IGT. County Supervisor Required: No Roll Clamp Operator: Not Required per policy Accompanied by: Self / Same As Patient Allergies lisinopril Allergy (Intermediate, Verified 06/30/24 16:00) Cough Tobacco use date assessed: 06/30/24 Dental Screening Dental Screen Date: 03/31/24 [facility] Medical History (Updated 03/31/24 @ 16:25 by Manolo Phillips MD) Knee pain, bilateral Alcohol abuse Colon cancer Overweight (BMI 25.0-29.9) Hypertension Hypercholesterolemia Surgical History H/O colonoscopy History of inguinal hernia repair History of tonsillectomy Family History Father Mouth cancer Lung cancer Mother CAD (coronary artery disease) Aneurysm Maternal Uncle Brain cancer Brother CAD (coronary artery disease) Lung cancer Maternal Uncle Brain cancer Social History Housing: House Alcohol intake: current Alcohol intake frequency: a few times a week Comment: twice a week 4 drinks and 6 drinks Patient Tobacco Use Status: Never used Tobacco Tobacco use type: Cigarette e-Cigarette/Vaping Use: Never Used Second Hand Smoke Exposure: No service: No Current occupational status: employed 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 Cognitive needs: No Hearing needs: No Vision needs: Yes (reading glasses) Questionnaire Thrive Questionnaire Date Thrive assessed: 03/31/24 I am a: Patient What is your living situation today?: I have a steady place to live Within the past 12 months, did the food you bought not last and you didn't have the money to get more?: Never true Within the past 12 months, did you worry whether your food would run out before you got money to buy more?: Never true Do you have trouble paying for medicines?: No Do you have trouble getting transportation to medical appointments?: No Do you have trouble paying your heating and electricity bill?: No Do you have trouble taking care of your child, family member or friend?: No Do you have trouble with day-to-day activities such as bathing, preparing meals, shopping, managing finances, etc.?: No Are you currently unemployed and looking for a job?: No Are you interested in more education?: I choose not to answer this question Please select the resources that you would like help with: None Currently or been in a relationship where the following occur: I choose not to answer THRIVE Score: 0 LEE-7 AMB Questionnaire LEE-7 Date LEE - 7 assessed: 03/31/24 Source: Developed by Drs. Aiden Ramos, Elisa Pierson, Michael Shipman and colleagues, with an educational liane from [employer]. Physical exam (Primary Care) Vital Signs: Last Vital Signs Temp 97.3 F 06/30/24 16:01 Pulse 64 06/30/24 16:01 BP 130/80 06/30/24 16:04 Pulse Ox 96 06/30/24 16:01 Oxygen Delivery Method Room Air 06/30/24 16:01 BMI result Body Mass Index 28.2 Tobacco/Smoking Status: Tobacco use Status Tobacco use date assessed 06/30/24 06/30/24 16:05 Patient Tobacco Use Status Never used Tobacco 06/30/24 16:05 Tobacco use type Cigarette 06/30/24 16:05 e-Cigarette/Vaping Use Never Used 06/30/24 16:05 Thrive Assessment: Date of Thrive Assessment Date Thrive assessed 03/31/24 06/30/24 16:05 Currently or been in a relationship where the following occur: I choose not to answer Const General: alert; No acute distress Eyes Conjunctivae: conjunctivae normal Resp Auscultation: clear to auscultation bilaterally Cardio Rate: regular rate Rhythm: regular rhythm GI Inspection: Yes normal to inspection Extrem General: Yes normal to inspection and No edema Coding Level of Care Code Est Pt Level 4 (15147) Complex EM visit Add On G2211 Diagnoses Essential hypertension I10 Hypertension type: essential hypertension Hypercholesterolemia E78.00 Overweight (BMI 25.0-29.9) E66.3 Impaired fasting blood sugar R73.01 Colon cancer C18.9 Psoriasis L40.9 Assessment & Plan Assessment & Plan (1) Hypertension: Code(s): I10 - Essential (primary) hypertension Category: Medical Qualifiers: Hypertension type: essential hypertension Qualified Code(s): I10 - Essential (primary) hypertension Plan: Continue with blood pressure medication. Decrease salt intake and exercise on amlodipine 5 mg once a day (2) Hypercholesterolemia: Code(s): E78.00 - Pure hypercholesterolemia, unspecified Category: Medical Plan: Avoid fried foods, chicken skin, eggs, butter margarine, pastries and meat. Be it pork or beef they have a lot of cholesterol LDL goal of less than 130 and triglyceride of less than 150 on simvastatin 10 mg once a day (3) Overweight (BMI 25.0-29.9): Code(s): E66.3 - Overweight Category: Medical Plan: Diet and exercise (4) Impaired fasting blood sugar: Code(s): R73.01 - Impaired fasting glucose Category: Medical Plan: Decrease the amount of carbohydrate intake, pasta, bread, rice and potatoes are all sugar and that is aside from all the sweet stuff, remember that fruits are good but they are Sweet also. (5) Colon cancer: Comment: May 2016 Dr. Gaxiola added a carcinoma May 2017 tubular adenoma October 2022 Code(s): C18.9 - Malignant neoplasm of colon, unspecified Category: Medical Plan: Continue to follow-up with Gastroenterology and up-to-date with colonoscopy (6) Psoriasis: Code(s): L40.9 - Psoriasis, unspecified Category: Medical Plan: Patient follows up with Dermatology and has been started on BIMS elix. Plan History of Present Illness The patient is a 59-year-old male presenting for follow-up on chronic conditions, including essential hypertension, hypercholesterolemia, impaired glucose tolerance, and psoriasis. He has a history of colon cancer and recent colonoscopy in October 2022. Current management of hypertension includes amlodipine 5 mg daily; hypercholesterolemia is managed with simvastatin 10 mg daily. The patient reports blood glucose concerns, with a hemoglobin A1c level of 5.9, improved from the prior level, with a focus on diet and exercise. Psoriasis appears primarily on the elbows and has been recently treated with Bimxelix (betamethasone dipropionate). The patient has concerns regarding cost and immune-suppressing effects, particularly concerning the shingles vaccine, and will proceed with biologic treatment post-vaccination. Health Maintenance - Blood pressure management with amlodipine 5 mg daily - Cholesterol management with simvastatin 10 mg daily, aiming for LDL <130, triglycerides <150 - Continues to follow up with gastroenterology for colon cancer surveillance - Up-to-date colonoscopy as of October 2022 - Discussion on the shingles vaccine prior to initiation of biologic treatment for psoriasis - Continuation of diet and exercise for impaired glucose tolerance Social History - Engaged in efforts to improve weight management through increased exercise, pending favorable weather conditions - Reports concerns regarding prescription medication costs and has enrolled in a financial assistance program for biologic treatment Review of Systems - Dermatologic: Reports psoriasis primarily on elbows - Endocrine: Denies symptoms of thyroid dysfunction - Cardiovascular: Denies leg swelling - Neurologic: Denies visual changes - Other systems: Denies any new or acute symptoms Physical Exam Results - Labs: Fasting blood sugar at 118; hemoglobin A1c at 5.9; normal liver function; cholesterol level at 107; thyroid function normal Plan I am managing the patient's essential hypertension with amlodipine and hypercholesterolemia with simvastatin, with goals set for LDL and triglycerides. The patient's glucose levels have been stable with lifestyle modifications. Psoriasis treatment with Bimxelix will commence following the shingles vaccine series to mitigate immune suppression risks. Continuous follow-up for colon cancer surveillance is advised, following the recent colonoscopy. The patient is encouraged to adhere to health maintenance activities, including regular monitoring of blood glucose and continued physical activity. Patient was informed and verbally consented to the use of an ambient scribe for clinic note documentation during this visit. Discussion Notes During the visit, I discussed the management of the patient's chronic conditions, including hypertension and hypercholesterolemia treated with amlodipine and simvastatin, respectively, with targets for LDL and triglyceride levels. We reviewed the recent improvement in hemoglobin A1c and the plan to continue lifestyle interventions. Psoriasis management plans include initiating Bimxelix after the shingles vaccine, discussing risks of immune suppression and the cost, which was addressed through an assistance program. The patient is informed of the importance of continued colon cancer screening with gastroenterology, post the recent colonoscopy. We discussed the need for regular exercise and healthy eating for optimal health maintenance, anticipating further laboratory work next year. Patient Instructions - Continue taking amlodipine 5 mg daily for blood pressure - Continue simvastatin 10 mg daily for cholesterol management - Follow-up with diet and exercise to maintain glucose control - Complete shingles vaccine series before starting Bimxelix treatment for psoriasis - Schedule and attend gastroenterology appointments for ongoing colon cancer screening - Return for routine blood work in February next year - Engage in regular physical exercise and follow a healthy diet to aid weight control Orders: Orders Comprehensive Met. Panel 6 Months R73.01 - Impaired fasting glucose Free T4 (Free Thyroxine) 6 Months R73.01 - Impaired fasting glucose Lipid Panel 6 Months E78.00 - Pure hypercholesterolemia, unspecified, R73.01 - Impaired fasting glucose Complete Blood Count Auto Diff 6 Months R73.01 - Impaired fasting glucose Thyroid Stimulating Hormone 6 Months R73.01 - Impaired fasting glucose Vitamin B12 and Folate 6 Months R73.01 - Impaired fasting glucose Prostate Specific Antigen Scr 6 Months R73.01 - Impaired fasting glucose Hemoglobin A1c 6 Months R73.01 - Impaired fasting glucose Hepatitis B,C Profile 6 Months R73.01 - Impaired fasting glucose, R79.89 - Other specified abnormal findings of blood chemistry T Spot TB 6 Months R73.01 - Impaired fasting glucose
[2024-06-30 16:01] VITALS: BP 100/62; PULSE 64; TEMP 36.3; O2SAT 96; BMI 28.2
[2024-06-30 16:04] VITALS: BP 130/80
--- OUTSIDE RECORDS SUMMARY | 2024-06-30 16:42 | XMS_ITS ---
Author Organization [facility] Address [address] [place] [id number] Care Team Providers Care Traffic And Transport Planner Name Role Phone Manolo Phillips MD Primary Care Provider Hedy Gaxiola Jr, Israel Wilson REASON FOR VISIT please change 5 yr recall to 3 yr 10/2025 Encounters Encounter Location Date Provider Diagnosis [facility] [address] [place] [address] 04/16/2024 Israel Gaxiola Jr Plan Of Treatment No Information Progress Notes * HARLEY SIERRADOB: [birth year] (59 yo M)Acc No.[id number]:04/16/2024 Patient:?MARIELALEANDRAHARLEY :1965???Age:59 Y???Sex:Male Address:[address] [place], [address] * true * Date:? Generated for Ann roman/Aashish/eTransmitting on:?06/30/2024 04:42 PM EDT
--- OUTSIDE RECORDS SUMMARY | 2024-06-30 16:42 | XMS_ITS | Clinical Summary ---
Author Organization [facility] Address [address] [place] [address] Care Team Providers Care Multiple Coil Winder Name Role Phone Unavailable Primary Care Provider [...]
--- OUTSIDE RECORDS SUMMARY | 2024-06-30 16:42 | XMS_ITS | Patient Health Record ---
Author Organization [facility] Address [address] [place] [address] Care Team Providers Care Copping Machine Operator Name Role Phone Manolo Phillips MD Primary Care Provider Israel Melchor Jr [phone] Allergies No Known Allergies Reason For Referral [...] Problem Status W/U Status Risk Notes Problem [id number] Colon cancer screening (Z12.11) Active confirmed Problem [id number] Encounter for ot her preprocedural examination (Z01.818) Active confirmed Problem History of colon polyps (Z86.010) Active confirmed Problem [id number] Long-term curren t use of high risk medication other than anticoagulant (Z79.899) Active confirmed Problem [id number] 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) Active confirmed Encounters Encounter Location Date Provider Diagnosis [facility] [address] [place] [address] 04/16/2024 Israel Gaxiola Jr Plan Of Treatment Future Test Test Name Order Date COLONOSCOPY 02/24/2016 COLONOSCOPY 10/18/2016 COLONOSCOPY 09/06/2022 Insurance Providers Payer Name Payer Address Payer Phone Subscriber Number Group Number Insured Name Patient Relationship to Insured Coverage Start Date Coverage End Date [facility] [address] [place], [place] [id number] HARLEY SIERRA Self - patient is the insured Medical (General) History Medical History History ICD Code hypertension hyperlipidemia Elevated body mass index Surgical History Surgery Date(Month/Year) hernia repair aprox 1994 Colonoscopy with small tubular adenoma, five-year followup 05/29
== END 2024-06-30 16:56 | disposition home or self-care (01) ==
LOC: HO.HMCH 15:57
PROVIDERS: PCP Internal Medicine; Visit Provider Internal Medicine
DX: I10 Essential (primary) hypertension (principal); E78.00 Pure hypercholesterolemia, unspecified; E66.3 Overweight; R73.01 Impaired fasting glucose; C18.9 Malignant neoplasm of colon, unspecified; L40.9 Psoriasis, unspecified

== ENCOUNTER → 2024-06-30 15:56 | Outpatient (BNVA) | payer BC, SELFPAY | PROVIDERS: PCP Internal Medicine; Visit Provider Internal Medicine | DX: Z13.89 Encounter for screening for other disorder (principal) ==

== ENCOUNTER 2024-10-19 14:36 | Outpatient (REF) | payer BC, SELFPAY ==
--- NOTE | ~2024-10-19 | XR_ITS ---
EXAMINATION: XR HIP 1 VIEW LEFT WITH PELVIS HISTORY: M25.552 - Pain in left hip COMPARISON: There are no prior studies available for comparison. FINDINGS: Two AP views of the pelvis and two views of the left hip are submitted. Osseous mineralization is normal. There is no fracture or dislocation. There is moderate to severe osteoarthritis with joint space narrowing and subchondral cyst formation. The soft tissues are unremarkable. XR/XR hip LT w PEL1V IMPRESSION: Moderate to severe osteoarthritis. Electronically signed by: Aiden Garrido MD 10/19/2024 03:51 PM EDT
== END 2024-10-19 14:37 | disposition home or self-care (01) ==
LOC: HO.XRAY 14:36
PROVIDERS: PCP Internal Medicine; Visit Provider Internal Medicine
DX: M25.552 Pain in left hip (principal); E66.3 Overweight; R73.01 Impaired fasting glucose; I10 Essential (primary) hypertension; E78.00 Pure hypercholesterolemia, unspecified; C18.9 Malignant neoplasm of colon, unspecified
CPT/HCPCS: 73502; 81003

== ENCOUNTER 2024-10-19 14:36 | Outpatient (AMB) | payer BC, SELFPAY ==
[2024-10-19 14:52] VITALS: BP 130/72; PULSE 71; O2SAT 97; BMI 27.5
--- NOTE | 2024-10-19 14:52 | MHC.PC.OV ---
Vital Signs 10/19/24 14:52 Height 5 ft 11 in Weight 197 lb BMI 27.5 BP 130/72 Blood Pressure Location Lt brachial Position Sitting Pulse 71 Pulse Source Pulse Oximeter Pulse Oximetry (%) 97 Oxygen Delivery Method Room Air Intake Visit Reasons: Hip pain for more than 10 weeks Allergies lisinopril Allergy (Intermediate, Verified 10/19/24 14:53) Cough Medication List - Last Reconciled 10/19/24 by Manolo Phillips MD amlodipine 5 mg PO DAILY betamethasone dipropionate 0.05% 1 appl topical BID PRN betamethasone dipropionate 0.05% 1 appl topical BID PRN cholecalciferol (vitamin D3) 25 mcg PO DAILY cyclobenzaprine 5 mg PO TID PRN simvastatin 10 mg PO QPM Tobacco use date assessed: 06/30/24 Dental Screening Dental Screen Date: 03/31/24 [facility] Medical History (Updated 10/19/24 @ 15:17 by Manolo Phillips MD) Knee pain, bilateral Alcohol abuse Colon cancer Overweight (BMI 25.0-29.9) Hypertension Hypercholesterolemia Surgical History H/O colonoscopy History of inguinal hernia repair History of tonsillectomy Family History Father Mouth cancer Lung cancer Mother CAD (coronary artery disease) Aneurysm Maternal Uncle Brain cancer Brother CAD (coronary artery disease) Lung cancer Maternal Uncle Brain cancer Social History Housing: House Alcohol intake: current Alcohol intake frequency: a few times a week Comment: twice a week 4 drinks and 6 drinks Patient Tobacco Use Status: Never used Tobacco Tobacco use type: Cigarette e-Cigarette/Vaping Use: Never Used Second Hand Smoke Exposure: No service: No Current occupational status: employed 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 Cognitive needs: No Hearing needs: No Vision needs: Yes (reading glasses) Questionnaire Thrive Questionnaire Date Thrive assessed: 03/31/24 I am a: Patient What is your living situation today?: I have a steady place to live Within the past 12 months, did the food you bought not last and you didn't have the money to get more?: Never true Within the past 12 months, did you worry whether your food would run out before you got money to buy more?: Never true Do you have trouble paying for medicines?: No Do you have trouble getting transportation to medical appointments?: No Do you have trouble paying your heating and electricity bill?: No Do you have trouble taking care of your child, family member or friend?: No Do you have trouble with day-to-day activities such as bathing, preparing meals, shopping, managing finances, etc.?: No Are you currently unemployed and looking for a job?: No Are you interested in more education?: I choose not to answer this question Please select the resources that you would like help with: None Currently or been in a relationship where the following occur: I choose not to answer THRIVE Score: 0 LEE-7 AMB Questionnaire LEE-7 Date LEE - 7 assessed: 03/31/24 Source: Developed by Drs. Aiden Ramos, Elisa Pierson, Michael Shipman and colleagues, with an educational liane from [employer]. Physical exam (Primary Care) Vital Signs: Last Vital Signs Pulse 71 10/19/24 14:52 BP 130/72 10/19/24 14:52 Pulse Ox 97 10/19/24 14:52 Oxygen Delivery Method Room Air 10/19/24 14:52 BMI result Body Mass Index 27.5 Tobacco/Smoking Status: Tobacco use Status Tobacco use date assessed 06/30/24 10/19/24 14:58 Patient Tobacco Use Status Never used Tobacco 10/19/24 14:58 Tobacco use type Cigarette 10/19/24 14:58 e-Cigarette/Vaping Use Never Used 10/19/24 14:58 Thrive Assessment: Date of Thrive Assessment Date Thrive assessed 03/31/24 10/19/24 14:58 Currently or been in a relationship where the following occur: I choose not to answer Const General: alert; No acute distress Eyes Conjunctivae: conjunctivae normal Resp Auscultation: clear to auscultation bilaterally Cardio Rate: regular rate Rhythm: regular rhythm GI Inspection: Yes normal to inspection Extrem General: Yes normal to inspection and No edema Results AMB Urinalysis, Automated UA Leukoctes 0 Omar/uL Last Edit by Sommer Aguirre CMA on 10/19/24 16:27 UA Nitrite Negative Last Edit by Sommer Aguirre, [facility] on 10/19/24 16:27 UA Urobilinogen 0.2 mg/dL Last Edit by Sommer Aguirre, [facility] on 10/19/24 16:27 UA Protein 0 mg/dL Last Edit by Sommer Aguirre, [facility] on 10/19/24 16:27 UA pH 6.0 Last Edit by Sommer Aguirre, [facility] on 10/19/24 16:27 UA Blood 0 Pancho/uL Last Edit by Sommer Aguirre, [facility] on 10/19/24 16:27 UA Specific Hinkle 1.030 Last Edit by Sommer Aguirre, [facility] on 10/19/24 16:27 UA Ketone Negative Last Edit by Sommer Aguirre, [facility] on 10/19/24 16:27 UA Bilirubin 0 mg/dL Last Edit by Sommer Aguirre, [facility] on 10/19/24 16:27 UA Glucose 500 mg/dL Last Edit by Sommer Aguirre, [facility] on 10/19/24 16:27 Results Reviewed Results Reviewed: Laboratory Last Values Urine pH (Auto) 6.0 10/19/24 16:25 Specific Hinkle (Auto) 1.030 10/19/24 16:25 Urine Protein (Auto) 0 mg/dL 10/19/24 16:25 Glucose (UA)(Auto) 500 mg/dL 10/19/24 16:25 Urine Ketones (Auto) Negative 10/19/24 16:25 Urine Blood (Auto) 0 Pancho/uL 10/19/24 16:25 Urine Nitrite (Auto) Negative 10/19/24 16:25 Urine Bilirubin (Auto) 0 mg/dL 10/19/24 16:25 Urine Urobilinogen (Auto) 0.2 mg/dL 10/19/24 16:25 Leukocyte Esterase (Auto) 0 Omar/uL 10/19/24 16:25 Coding Level of Care Code Est Pt Level 4 (78058) Diagnoses Overweight (BMI 25.0-29.9) E66.3 Impaired fasting blood sugar R73.01 Essential hypertension I10 Hypertension type: essential hypertension Hypercholesterolemia E78.00 Colon cancer C18.9 Left hip pain M25.552 Assessment & Plan Assessment & Plan (1) Overweight (BMI 25.0-29.9): Code(s): E66.3 - Overweight Category: Medical Plan: Diet and exercise (2) Impaired fasting blood sugar: Code(s): R73.01 - Impaired fasting glucose Category: Medical Plan: Decrease the amount of carbohydrate intake, pasta, bread, rice and potatoes are all sugar and that is aside from all the sweet stuff, remember that fruits are good but they are Sweet also. June 2024 hemoglobin A1c is 5.9 (3) Hypertension: Code(s): I10 - Essential (primary) hypertension Category: Medical Qualifiers: Hypertension type: essential hypertension Qualified Code(s): I10 - Essential (primary) hypertension Plan: Continue with blood pressure medication. Decrease salt intake and exercise patient takes amlodipine 5 mg once a day (4) Hypercholesterolemia: Code(s): E78.00 - Pure hypercholesterolemia, unspecified Category: Medical Plan: Avoid fried foods, chicken skin, eggs, butter margarine, pastries and meat. Be it pork or beef they have a lot of cholesterol LDL goal of less than 130 and triglyceride of less than 150 on simvastatin 10 mg at bedtime (5) Colon cancer: Comment: May 2016 Dr. Gaxiola added a carcinoma May 2017 tubular adenoma October 2022 5 years Code(s): C18.9 - Malignant neoplasm of colon, unspecified Category: Medical Plan: Last colonoscopy was October 2022 5 years (6) Left hip pain: Code(s): M25.552 - Pain in left hip Category: Medical Plan History of Present Illness The patient is a 59-year-old male presenting with hip pain. The pain began approximately eight weeks ago, potentially related to an incident involving twisting while getting off a tractor. The pain is localized to the groin and radiates to the lower back, causing significant discomfort and impacting daily activities such as putting on socks and walking. The patient has attempted various interventions including acetaminophen, ibuprofen, and non-pharmacological measures such as ice and heat application, with limited relief. The pain persists, affecting sleep and mobility, and has not improved over time. The patient has a history of hypertension, hypercholesterolemia, impaired glucose tolerance, colon cancer, and psoriasis. Previous colonoscopy was performed in October 2022, with a follow-up scheduled in five years. Recent blood work in March showed normal blood count, electrolytes, renal function, and liver function, with a mildly elevated hemoglobin A1c of 5.9%. Health Maintenance - Colonoscopy performed in October 2022, next due in five years - Blood pressure management with amlodipine 5 mg daily - Cholesterol management with simvastatin 10 mg at bedtime, LDL goal of less than 130 mg/dL Social History - Reports being inactive due to hip pain, affecting lifestyle and mobility Review of Systems - Musculoskeletal: Reports hip pain radiating to the groin and lower back, affecting mobility and sleep. Denies rash or skin changes. - Genitourinary: Reports increased nocturia, denies dysuria or hematuria. - Neurological: Reports sciatic pain on the right side. Physical Exam - Musculoskeletal: Pain elicited upon hip movement, particularly when lifting the leg and during certain maneuvers, no pain upon crossing the leg Results - Labs: March blood work showed normal blood count, electrolytes, renal function, liver function, and mildly elevated hemoglobin A1c of 5.9%. - Imaging: Knee x-rays were unremarkable. Plan Patient was informed and verbally consented to the use of an ambient scribe for clinic note documentation during this visit. 1. Hip Pain The plan includes obtaining an x-ray of the hip to assess for any structural abnormalities. A urinalysis will be conducted to rule out any urinary tract issues contributing to the symptoms. Physical therapy is recommended to improve mobility and reduce pain. Muscle relaxants will be prescribed to alleviate pain and discomfort. 2. Hypertension The patient is currently on amlodipine 5 mg once daily for blood pressure management. 3. Hypercholesterolemia The patient is on simvastatin 10 mg at bedtime with an LDL goal of less than 130 mg/dL. 4. Impaired Glucose Tolerance The patient's hemoglobin A1c is 5.9%, indicating impaired glucose tolerance, and lifestyle modifications including diet and exercise are advised. 5. History Of Colon Cancer The patient had a colonoscopy in October 2022, which was normal, and the next screening is scheduled in five years. Discussion Notes We discussed the potential causes of the hip pain, including possible structural issues or muscle strain. I explained the need for an x-ray and urinalysis to further investigate the symptoms. We also talked about the use of muscle relaxants and physical therapy as part of the management plan. Patient Instructions - Follow up with x-ray and urinalysis as discussed. - Begin physical therapy to help with hip pain. - Take prescribed muscle relaxants as directed. - Continue current medications for hypertension and hypercholesterolemia. Orders: Orders PT Evaluation and Treatment Today M25.552 - Pain in left hip XR hip LT w PEL1V Today M25.552 - Pain in left hip AMB Urinalysis Automated Today M25.552 - Pain in left hip, Z13.9 - Encounter for screening, unspecified Medications: New cyclobenzaprine 5 mg PO TID PRN 30 tabs 0RF muscle spasm M25.552 - Pain in left hip
--- OUTSIDE RECORDS SUMMARY | 2024-10-19 16:59 | XMS_ITS | Clinical Summary ---
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
--- OUTSIDE RECORDS SUMMARY | 2024-10-19 16:59 | XMS_ITS | Patient Health Record ---
Author Organization [facility] Address [address] [place] [address] Care Team Providers Care Cmo Name Role Phone Manolo Phillips MD Primary [...] Problem Status W/U Status Risk Notes Problem 935999606 Colon cancer screening (Z12.11) Active confirmed Problem 76386368 Encounter for other preprocedural examination (Z01.818) Active confirmed Problem History of polyp of colon (situation) (328063921) History of colon polyps (Z86.010) Active confirmed Problem 997511139 Long-term curren t use of high risk medication other than anticoagulant (Z79.899) Active confirmed Problem 364473938 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) Active confirmed Encounters Encounter Location Date Provider Diagnosis [facility] [address] [place] [address] 04/16/2024 Israel Gaxiola Jr Plan Of Treatment Future Test Test Name Order Date COLONOSCOPY 02/24/2016 COLONOSCOPY 10/18/2016 COLONOSCOPY 09/06/2022 Insurance Providers Payer Name Payer Address Payer Phone Subscriber Number Group Number Insured Name Patient Relationship to Insured Coverage Start Date Coverage End Date [facility] [address] [place], [place] [id number] HARLEY SIERRA Self - patient is the insured Medical (General) History Medical History History ICD Code hypertension hyperlipidemia Elevated body mass index Surgical History Surgery Date(Month/Year) hernia repair aprox 1994 Colonoscopy with small tubular adenoma, five-year followup 05/29
== END 2024-10-19 15:27 | disposition home or self-care (01) ==
LOC: HO.HMCH 14:37
PROVIDERS: PCP Internal Medicine; Visit Provider Internal Medicine
DX: E78.00 Pure hypercholesterolemia, unspecified (principal); C18.9 Malignant neoplasm of colon, unspecified; E66.3 Overweight; Z68.27 Body mass index [BMI] 27.0-27.9, adult; R73.01 Impaired fasting glucose; I10 Essential (primary) hypertension; M25.552 Pain in left hip; Z13.9 Encounter for screening, unspecified

== ENCOUNTER → 2024-10-19 15:34 | Outpatient (BNV) | payer BC, SELFPAY | PROVIDERS: PCP Internal Medicine; Visit Provider Radiology Diagnostic Radiology | DX: M16.12 Unilateral primary osteoarthritis, left hip (principal) | CPT/HCPCS: 73502 ==

== ENCOUNTER 2024-12-07 07:05 | Outpatient (RCR) | payer BC, SELFPAY | END 2025-01-24 08:06 | disposition home or self-care (01) | LOC: HO.PT 07:05 | PROVIDERS: PCP Internal Medicine; Visit Provider Internal Medicine | DX: M25.552 Pain in left hip (principal) | CPT/HCPCS: 97110; 97140; 97162; 97535 ==

== ENCOUNTER 2025-01-15 12:18 | Outpatient (AMB) | payer BC, SELFPAY ==
--- NOTE | 2025-01-15 12:21 | A.OFFVIS_ITS ---
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 Patient has x rays done on 10/19/24. Patient reports ongoing pain for about 6 months. He states that his pain is on the groin aspect of the hip radiating to the posterior side of the hip and into low back. Patient notices that his pain is worse with movement specifically pivoting, ambulating stairs and running. He was referred to physical therapy and was prescribed cyclobenzaprine by his PCP. Reports muscle relaxer only made him sleepy, did not relieve pain. He expresses 7 sessions with PT, says he made progress and was limping a lot from it however he has less pain from the start of his symptoms and he is now able to put his shoe on which he was unable to do so before PT. The underlying hip pain he has is remaining he says. Denies numbness & tingling. 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 He states the hip started bothering him around June 2024. He does recall getting off a tractor and twisted the leg and felt pain. It did seem to improve for a bit but the more active he is the worse it gets. He developed a limp, he cannot run, he started limiting his activities due to the pain. He was seen by his PCP. He tried muscle relaxer and did not like the side effects and did not help the pain. He was sent to PT, he attended 6 sessions with PT and had some improvement as far as his l imp and the pain along the inner aspect of the thigh. He states he can walk mostly normal but when he is physical such as running or cutting wood he has significant pain. The pain is located along the lateral side of the hip, he cannot sleep on the left side due to the pain. Denies numbness or tingling down the leg. [facility] Medical History Knee pain, bilateral Alcohol abuse Colon cancer Overweight (BMI 25.0-29.9) Hypertension Hypercholesterolemia Surgical History H/O colonoscopy History of inguinal hernia repair History of tonsillectomy Family History Father Mouth cancer Lung cancer Mother CAD (coronary artery disease) Aneurysm Maternal Uncle Brain cancer Brother CAD (coronary artery disease) Lung cancer Maternal Uncle Brain cancer Social History Housing: House Alcohol intake: current Alcohol intake frequency: a few times a week Comment: twice a week 4 drinks and 6 drinks Patient Tobacco Use Status: Never used Tobacco Tobacco use type: Cigarette e-Cigarette/Vaping Use: Never Used Second Hand Smoke Exposure: No service: No Current occupational status: employed 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 No pain with ROM of the hip. Pain along the greater trochanter. No pain with hip flexion or abduction.There is Notenderness along the si joint, Negative SLR. NVI. Results Reviewed Results Reviewed: XR hip LT w PEL1V IMPRESSION: Moderate to severe osteoarthritis. Assessment & Plan Assessment & Plan (1) Osteoarthritis of left hip: Code(s): M16.12 - Unilateral primary osteoarthritis, left hip Category: Medical (2) Trochanteric bursitis, left hip: Code(s): M70.62 - Trochanteric bursitis, left hip Category: Medical Plan we discussed options today and because his primary source of pain is around the trochanteric bursa I encouraged him to continue working with physical therapy for glute strengthening hamstring strength and conditioning exercises. I also gave him a prescription for ibuprofen 800 mg to take 3 times a day for 2 weeks to help with the acute flare-ups. We also discussed the role of steroid injections and how they are able to help with inflammation and pain which he would like to hold off on at this time. If his symptoms continue to persist or worsen over the next 6-8 weeks can contact me for a steroid injection otherwise he will follow up as needed. Medications: New ibuprofen 800 mg PO Q8H PRN 90 tabs 0RF pain 30 days Patient Instructions: Prescribed NSAID for orthopedic pain related to Hip bursitis and arthritis . Reviewed patient history including no GI ulcer/bleed, CKD, CHF, CAD, liver disease, bleeding disorders, or NSAID allergy. Current medications reviewed with no interactions or duplicate NSAID use. Discussed orthopedic considerations, including short-term use being appropriate for soft-tissue pain and potential effects on fracture healing if applicable. Reviewed risks: GI irritation/bleeding, renal impairment, cardiovascular risk, and avoiding multiple NSAIDs. Instructed patient to take with food, avoid alcohol, and monitor for red-flag symptoms (black stools, hematemesis, severe abdominal pain, decreased urination, chest pain, SOB, worsening pain). I explained to the patient if they require potential care home use of NSAID therapy, routine labs would be required to monitor kidney function and a copy would be sent to their PCP in case there are abnormalities that require attention. Patient verbalized understanding. Coding Level of Care Code New Pt Level 3 (42869) Complex visit Add On G2211 Diagnoses Osteoarthritis of left hip M16.12 Trochanteric bursitis, left hip M70.62
[2025-01-15 12:26] VITALS: BMI 25.8
== END 2025-01-15 12:59 | disposition home or self-care (01) ==
LOC: HO.HOS 12:19
PROVIDERS: PCP Internal Medicine; Visit Provider Physician Assistant
DX: M16.12 Unilateral primary osteoarthritis, left hip (principal); M70.62 Trochanteric bursitis, left hip
CPT/HCPCS: 99203